=== PATIENT | female | born 1960 | race Caucasian/White ===

== ENCOUNTER → 2018-02-03 12:09 | Outpatient (CLI) | payer MEDICARE, SELFPAY ==
[2018-02-03 13:04] LABS: AST(SGOT) 17 U/L (15-37); Alanine Aminotransfer ALT/SGPT 18 U/L (13-56); Albumin, Serum 3.6 g/dL (3.2-5.0); Alkaline Phosphatase 67 U/L (45-117); Bilirubin, Direct 0.12 mg/dL (0.00-0.30); Cholesterol 302 mg/dL (200); Globulin 3.9 g/dL (2.2-4.2); High Density Lipoprotein 49 mg/dL; Protein, Total 7.5 g/dL (6.4-8.2); Triglycerides 145 mg/dL; Very Low Density Lipoprotein 29 mg/dL (5-40)
== END ==
PROVIDERS: Family Provider Internal Medicine; PCP Internal Medicine; Visit Provider Internal Medicine Cardiovascular Disease
DX: I25.10 Atherosclerotic heart disease of native coronary artery without angina pectoris (principal); E78.5 Hyperlipidemia, unspecified
CPT/HCPCS: 36415; 80061; 80076

== ENCOUNTER → 2018-05-04 09:26 | Outpatient (CLI) | payer MEDICARE, SELFPAY ==
[2018-05-04 10:30] LABS: AST(SGOT) 17 U/L (15-37); Alanine Aminotransfer ALT/SGPT 23 U/L (13-56); Albumin, Serum 3.7 g/dL (3.2-5.0); Alkaline Phosphatase 74 U/L (45-117); Cholesterol 275 mg/dL (200); Globulin 3.9 g/dL (2.2-4.2); High Density Lipoprotein 52 mg/dL; Protein, Total 7.6 g/dL (6.4-8.2); Triglycerides 130 mg/dL; Very Low Density Lipoprotein 26 mg/dL (5-40)
--- OUTSIDE RECORDS SUMMARY | 2018-08-05 16:07 | XMS RPT_ITS ---
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 Neoplasm Of Breast\ Screening Mammogram - patient reports NO breast symptoms /priors available for comparison. RESULT: TECHNIQUE: The study was acquired using full field digital technology and interpreted from soft copy. Current study was also evaluated with a Computer Aided Detection (CAD). Comparison is made to exams dated: 05/09/2015 mammogram, 01/31/2014 mammogram, 08/29/2011 mammogram - [facility], and 10/04/2007 mammogram. The tissue of both breasts is heterogeneously dense. This may lower the sensitivity of mammography. No significant masses, calcifications, or other findings are seen in either breast. There has been no significant interval change. IMPRESSION: NEGATIVE There is no mammographic evidence of malignancy.A 1 year screening mammogram is recommended. Silas Corea M.D., jr/stacey:06/25/2017 11:43:43 Fire Equipment Repairer Inspector: Libby BALDERRAMA(R)(M), [facility] letter sent: Normal over 40 Mammogram BI-RADS: 1 Negative Tax Evaluator: Stacey Transcribe Date/Time: Jun 25 2017 11:19A Dictated by: SILAS COREA MD This examination was interpreted and the report reviewed and electronically signed by: SILAS COREA MD on Jun 25 2017 11:43AM EST [id number] [id number] Observed: 06/23/2017 Status: COMPLETED Source: [place] 4:30 PM [facility] MAIN CAMPUS REPOSITORY HNO ID: [id number] Author: Rosalind Feliciano Service: (none) Author Type: Physician Type: Progress Notes Filed: 06/23/2017 5:18 PM Note Text: Reason for Visit Patient presents with: Same Day Appointment: rash x 1 day Spike Lew is a 56 year old female who presents here today for Above Complaints.. Health Maintenance HEPATITIS C SCREENING MAMMOGRAM PAP EVERY 5 YEARS HPV EVERY 5 YEARS INFLUENZA(1) HPI Rash for 1 day, around the neck, started with some welts and then subsided to a macular area. Started suddenly , wore the same jewellery no new clothes was not bit by any insect. Stiff neck for a week- Muscle aches for a week. She is also having more body ache as all her pain medication have been stopped by Dr. Gonzalez, Wants a new pain management doctor. Needs mammogram Currently on clopidogrel for her CAD, cont to smoke No problem-specific Assessment AND Plan notes found for this encounter. PAST MEDICAL HISTORY Diagnosis Date - Arrhythmia h/o bigeminy - Atherosclerosis of [place] coronary artery of [place] heart without angina pectoris 06/16/2016 - Chronic obstructive pulmonary disease (COPD) (HCC) - Depressive disorder, not elsewhere classified - Other anxiety states - Reflex sympathetic dystrophy of other specified site Left ankle - Snoring PAST SURGICAL HISTORY Procedure Laterality Date - FNA WITH IMAGING 05/17/14 U/S FNA left thyroid nodule - LIGATE FALLOPIAN TUBE - PAST SURGICAL HISTORY OF nerve stimulator - REMOVE TONSILS/ADENOIDS,12+ Y/O FAMILY HISTORY Problem Relation Age of Onset - Diabetes Mother - epilepsy [OTHER] Mother - lung cancer [OTHER] Father Social History Substance Use Topics - Smoking status: Former Smoker Packs/day: 0.50 Years: 30.00 Types: Cigarettes Quit date: 06/05/2016 - Smokeless tobacco: Never Used - Alcohol use Yes Comment: social Past medical history, appointments, medications, allergies reviewed. Pertinent Lab/Diagnostic Studies are reviewed and discussed today Current Outpatient Prescriptions: - fluticasone (FLONASE) 50 mcg/actuation nasal spray - CLOPIDOGREL BISULFATE (PLAVIX ORAL) - albuterol HFA (PROAIR HFA) 90 mcg/actuation inhaler - methadone (DOLOPHINE) 10 mg tablet - DULoxetine (CYMBALTA) 60 mg capsule - oxyCODONE-acetaminophen (PERCOCET) 5-325 mg tablet - ALPRAZolam (XANAX) 0.5 mg tablet - aspirin, enteric coated (ADULT LOW DOSE ASPIRIN) 81 mg EC tablet - pravastatin (PRAVACHOL) 20 mg tablet - ticagrelor (BRILINTA) 90 mg tablet - estradiol (ESTRACE) 0.01 % (0.1 mg/gram) vaginal cream - Cholecalciferol, Vitamin D3, 1,000 unit cap - multivitamin tablet - [place]-3 Fatty Acids (FISH OIL) 500 mg Cap Review of Systems CONSTITUTIONAL: No fevers, chills night sweats, unintended weight loss CARDIOVASCULAR: No chest pain, dyspnea, palpitations, orthopnea, PND, ankle edema. PULM: No dyspnea, unexplained cough. GI: No dysphagia/odynophagia, problematic reflux, constipation, diarrhea, changes in stool habits, hematochezia, melena. : No new urinary complaints, including dysuria, gross hematuria or pyuria. NEURO: No new balance problems, peripheral weakness/paresthesias or numbness of concern. Physical Exam BP 126/76 (BP Site: Left Arm, BP Position: Sitting, BP Cuff Size: Regular Adult) Pulse 86 Resp 12 Ht 170.2 cm (5' 7) Wt 69.4 kg (153 lb) LMP 01/18/2008 SpO2 95% BMI 23.96 kg/m2 General appearance: Well appearing, alert, in no acute distress, well nourished. Skin: some redness on the right side of the neck area of around 2cm by 2 cm with one little papular lesion Head: Normocephalic, no masses, lesions, tenderness or abnormalities Eyes: Anicteric sclera. Pupils are equally round and reactive to light. Extraocular movements are intact. Lungs: Lungs clear to auscultation. No wheezing, rhonchi, rales Heart: RRR without murmur, gallop, or rubs. ASSESSMENT/PLAN: 1. Muscle pain - ICD9: 729.1, ICD10: M79.1 (primary diagnosis) - CYCLOBENZAPRINE 10 MG TABLET 2. Neck stiffness - ICD9: 723.5, ICD10: M43.6 - PREDNISONE 10 MG TABLET - CYCLOBENZAPRINE 10 MG TABLET 3. Gastroesophageal reflux disease, esophagitis presence not specified - ICD9: 530.81, ICD10: K21.9 - Discussed lifestyle modifications including losing weight, limiting caffeine, no meals three hours before sleep and head of bed elevation - PANTOPRAZOLE 20 MG TABLET,DELAYED RELEASE 4. Encounter for screening mammogram for breast cancer - ICD9: V76.12, ICD10: Z12.31 - Encouraged monthly BSE - Follow up for annual exam in one year. - [facility] SCREENING ROSALIND FELICIANO MD CARDIOLOGY VISIT Observed: 06/11/2017 Status: F Source: [place] RE[place] 2:02 PM [facility] REPOSITORY [place] [facility] [address] [place] [address] OFFICE VISIT Date of Service: 06/11/17 MR#: [id number] Acct: [id number] Name: SPIKE LEW Rep #: [id number] : 1960 Provider: Domenico Carvalho MD Age/Sex: 56/F Location: [facility] Status: Signed HPI 6 M FU: Chief Complaint: Routine F/u Details: HPI Mrs. Lew is a very pleasant 56-year-old nondiabetic long smoking patient, who recently quit after presenting with substernal chest pain and non-ST elevation myocardial infarction to [facility]. Her troponins increased to 1.5. She underwent an urgent left heart catheterization by myself. This demonstrated a 40-50% mid eccentric plaque of the LAD followed by nonobstructive disease of the LAD diagonals and left circumflex system. She appeared to have a possibly significant proximal RCA stenosis as well as a filling defect in the most extreme terminal portion of the posterior lateral branch. This was too small for balloon angioplasty, however IVUS demonstrated a significant stenosis of the proximal RCA. She underwent successful angioplasty and drug-eluting stent of the proximal RCA receiving of 4.0X 28 Promus mm. Since discharge the patient has been feeling much better however she does have some fatigue as a result of her beta devin. She was doing well up until 08/04/16 when she presented with syncope most likely vasovagal and as a result of her beta devin. Her metoprolol was discontinued and she has had no further syncopal episodes. She initially quit smoking with Chantix assistance, then went back to smoking but wishes to go back on Chantix. Her main complaint today is fatigue and tiredness. From a cardiac standpoint she denies any chest pain, angina, shortness of breath or dyspnea on exertion. She does complain of fatigue, and is still smoking about 6 or 7 cigarettes per day. She is awaiting a sleep study for excessive snoring and daytime somnolence. In our office today her blood pressure is 110/62, and pulse is 88 and reg is as below. Echocardiogram dated 06/06/16 showed an EF of 65% and RVSP of 27 mmHg. EKG date06/07/16 showed normal sinus rhythm with inferior nonspecific ST and T-wave changes. Lipids as of 06/06/16 show an LDL of 122 and HDL 38. Repeat lipids are pending. Intake Vital Signs06/11/17 Height 5 ft 7 in 06/11/17 Weight: 155 lb 06/11/17 Body Mass Index (BMI) 24.3 06/11/17 Blood Pressure 110/62 06/11/17 Respiratory Rate 18 06/11/17 Pulse Rate 78 Intake Visit Reasons: 6 M FU Allergies aspirin Adverse Reaction (Verified 06/11/17 13:37) Other Msiuqbv-Kns-Hnp Reductase Inhibitor Adverse Reaction (Verified 06/11/17 13:37) myalgias ticagrelor [From Brilinta] Adverse Reaction (Verified 06/11/17 13:37) SOB Medications Cholecalciferol (Vitamin D3) [Vitamin D3] 1,000 unit PO DAILY 06/05/16 [History Confirmed 06/10/17] Estradiol [Estrace Vaginal Cream] 1 gm VAGINAL Q7D 06/05/16 [History Confirmed 06/10/17] Methadone HCl 10 mg PO Q12H 06/05/16 [History Confirmed 06/10/17] [place]-3 Fatty Acids/Fish Oil [[place] 3 Fish Oil Softgel] 1 ea PO DAILY 06/05/16 [History Confirmed 06/10/17] ALPRAZolam [Xanax] 0.5 mg PO TID PRN PRN #30 tab 06/07/16 [Rx Confirmed 06/10/17] Aspirin E.C. [Ecotrin] 81 mg PO DAILY@0800 tab 06/07/16 [Rx Confirmed 06/10/17] Duloxetine Hcl [Cymbalta] 60 mg PO DAILY #30 nathaniel. 06/07/16 [Rx Confirmed 06/10/17] clopidogrel 75 mg tablet 75 mg PO QDAY 06/10/17 [History Confirmed 06/10/17] oxycodone-acetaminophen 5 mg-300 mg tablet 1 tab PO Q6H tab 06/11/17 [History Confirmed 06/11/17] PFS Medical History Atherosclerosis of coronary artery of [place] heart without angina pectoris (Chronic) Nicotine dependence (Chronic) Hyperlipidemia (Chronic) Non-STEMI (non-ST elevated myocardial infarction) (Chronic) Hypertension (Chronic) Chronic pain syndrome (Chronic) ETOH abuse (Chronic) Syncope and collapse (Resolved) Surgical History History of coronary artery stent placement (Chronic 06/05/16) H/O tubal ligation (Chronic) History of tonsillectomy (Chronic) presence of nerve stimulator (Chronic) Family History Father CAD (coronary artery disease) Mother Diabetes Hypertension Social History Smoking Status: Current every day smoker alcohol intake: current alcohol intake frequency: a few times a week ROS Const Const: Positive for fatigue; negative for weakness, difficulty sleeping, frequent falls, headache(s) or excessive sweating Eyes Eyes: Negative for loss of peripheral vision, transient loss of vision, blurry vision or double vision ENT ENT: Negative for headache(s), Negative for dizziness, Negative for Nosebleed/epistaxis, Negative for balance problems Cardio Chest Pain: No Edema: None Muscle aches with walking: None Resp Respiratory: Positive for snoring; negative for SOB with activity, SOB at rest, SOB orthopnea\SOB lying down or paroxysmal nocturnal dyspnea GI GI: Negative nausea or heartburn : Negative for hematuria Musc Musc: Positive for joint pain; negative for muscle aches/ myalgia, muscle weakness or balance problems Skin Skin: Negative non-healing lesions, unusual bruising or rash Neuro Neuro: Negative for weakness, Negative for frequent falls, Negative for blurry vision, Negative for headache(s), Negative for dizziness, Negative for lightheadedness, Negative for orthostatic symptoms, Negative for double vision Luis Alfredo Hematologic/Lymphatic: Negative for easy bruising Endo Endo: Positive for fatigue; negative for excessive sweating or increased thirst/drinking Psych Psych: Negative for anxiety or depression Allergy Allergy/Immunology: Negative for hives, Negative for rash Cardiology Exam Const Appearance: cooperative, healthy appearing and no acute distress Nutritional Appearance: well nourished Orientation: alert, oriented x3 and oriented to person Head Head: normal to inspection, atraumatic and normocephalic Nose: external nose normal Face and Sinus: face symmetric Mouth: oral mucosae normal Eyes General: appearance normal, both eyes and all related structures Eyelids: eyelids normal Conjunctivae: conjunctivae normal Pupils: PERRL and normal by confrontation EOM: EOM intact bilaterally Neck Neck: normal visual inspection and full ROM Carotids: normal carotid upstroke Chest Chest inspection: normal inspection of the chest Auscultation: Bilateral: Clear to Auscultation Cardio Palpation: normal PMI Rate: regular rate Rhythm: regular rhythm Heart sounds: S1 normal and S2 normal GI GI: normal to inspection, no hepatosplenomegaly and bowel sounds present Neuro General: alert, oriented x3, awake, CN's II-XI intact bilaterally and moves all extremities Skin Skin: no rashes or lesions noted Extremities Pulses: Normal: Right Femoral Pulse, Left Femoral Pulse, Right Dorsalis Pedis Pulse, Left Dorsalis Pedis Pulse, Right Posterior Tibial Pulse, Left Posterior Tibial Pulse, Right Radial Pulse, Left Radial Pulse Lower Extremity Edema: None: Bilateral Psych Psychological: normal affect Assessment AND Plan Plan 1. Coronary artery disease: No exertional anginal symptoms at this time. No indication for any additional testing. She is awaiting a sleep study and I encouraged her to continue with that. Recommended that she continue her baby aspirin, Plavix for her nonobstructive coronary disease she is unable to take beta blockers due to severe fatigue. 2. Hypercholesterolemia: We are awaiting a repeat lipid profile. Unfortunately she is unable to tolerate statins. Continue omega-3 fatty acids. 3. Tobacco cessation: I strongly encouraged the patient to discontinue all tobacco products and to begin an exercise program to assist with that goal. Patient is agreed to proceed once her sleep study has been completed. 4. Return to office in 6 months. This note was generated using a voice recognition system and there may be incorrect words, spelling or punctuation that were not noted when reviewing the office note prior to saving.. Orders Orders: Plan Detail Follow Up 6 Months (Deven) Coding Level of Care Code Off vis,est,level 3 06/11/17 1402 <Electronically signed by Domenico Carvalho MD> Date Domenico Carvalho MD Cosigner Signature: Date (if applicable) CC: ALLERGIES ALLERGIES DATE TYPE / CODE NAME / CODE REACTION SEVERITY SOURCE Drug Fypsrth-Fuw-Fzt MYALGIAS Unknown [place] 8 Allergy/227522610( Reduct[facility] SNOMED [facility]) Inhibitor/J979137 Hospital 095(RXNORM) Repository Drug aspirin/[id number] Other Unknown [place] 8 Allergy/286003535( 7(RXNORM) [facility] SNOMED CT) Hospital Repository Drug ticagrelor/R86896 Shortness of Unknown [place] 8 Allergy/240647090( 3611(RXNORM) breath [facility]) Hospital Repository DRUG ATORVASTATIN Myalgia [place] 5 INGREDI/015277869( [facility] SNOMED CT) [place] Repository Miscellaneous OTHER GI UPSET [place] 9 Allergy/001612407( [facility] SNOMED CT) [place] Repository ENCOUNTERS ENCOUNTERS ADMIT/DISCHARGE ACCOUNT ADMITTING ENCOUNTER LOCATION SOURCE NUMBER CLASS 05/04/2018 [id number] Ambulatory [facility] ing:LAB Repository 02/03/2018 [id number] Ambulatory [facility] ing:LAB Repository 01/28/2018/01/29/20 [id number] Ambulatory BMSBuilding:[place] [address] [place] Repository 06/25/2017/06/25/19 [id number] Ambulatory [address] Repository 06/23/2017/06/23/19 [id number] Ambulatory [address] Repository 06/11/2017/06/11/19 [id number] Ambulatory BMSBuilding:Panch[place] 18 .[facility] Repository 06/10/2017 [id number] Ambulatory BMSBuilding:B [place] Repository PAYERS PAYERS ENCOUNTER GUARANTOR PAYER SUBSCRIBER SOURCE 05/04/2018 SPIKE A Primary Insurance:MMO SPIKE A [place] [id number] MEDICAREPolicy JOHNSONDOB: General acute hospital Number: [id number], [place] [id number] Repository [address]Aou: ([phone]) Date:[id number] [phone] () [address] [place] [phone]: 05/04/2018 Secondary NOT GIVENUNK [place] Insurance:SELF PAY [facility] Number: Effective Repository Date:2018-05-04 02/03/2018 SPIKE A Primary Insurance:MMO SPIKE A [place] [id number] MEDICAREPolicy JOHNSONDOB: General acute hospital Number: [id number], [place] [id number] Repository [address]Hzp: ([phone]) Date:[id number] [phone] () [address] [place] [phone]: 02/03/2018 Secondary NOT GIVENUNK [place] Insurance:SELF PAY [facility] Number: Effective Repository Date:2018-02-03 01/28/2018 SPIKE A Primary Insurance:MMO SPIKE A [place] [id number] MEDICAREPolicy JOHNSONDOB: General acute hospital Number: [id number], [place] [id number] Repository 619[address]Llj: (330) Date:[id number] [phone] () [address], [place] [phone]: 01/28/2018 Secondary NOT GIVENUNK [place] Insurance:SELF PAY [facility] Number: Effective Repository Date:2018-01-26 06/11/2017 SPIKE A Primary Insurance:MMO SPIKE A [place] [id number] MEDICAREPolicy JOHNSONDOB: General acute hospital Number: [id number], [place] [id number] Repository [address]Upt: ([phone]) Date:[id number] [phone] () [address], [place] [address]CK: 06/11/2017 Secondary NOT GIVENUNK [place] Insurance:SELF PAY [facility] Effective Repository Date:2017-04-20 06/10/2017 Spike [id number] Primary Insurance:[facility] SPIKE TYLERB: [place] MEDICAREPolicy [id number] Number: [facility] [address]Nxt: [id number] Repository [phone] Date:[id number] [address] () [address] [place] [phone]: 06/10/2017 Secondary NOT GIVENUNK [place] Insurance:SELF PAY [facility] Number: Effective Repository Date:2017-06-10
== END ==
PROVIDERS: Nurse Practitioner Family; Family Provider Internal Medicine; PCP Internal Medicine; Referring Provider Internal Medicine Cardiovascular Disease; Visit Provider Internal Medicine Cardiovascular Disease
DX: E78.5 Hyperlipidemia, unspecified (principal); I25.10 Atherosclerotic heart disease of native coronary artery without angina pectoris; Z95.5 Presence of coronary angioplasty implant and graft
CPT/HCPCS: 36415; 80061; 80076

== ENCOUNTER 2018-08-09 12:00 | Inpatient (IN) | payer MEDICARE, SELFPAY ==
[2018-08-09] VITALS (10 sets, daily range): BP systolic 93–133; BP diastolic 57–91; PULSE 53–85; RESP 14–18; TEMP 36.1–36.9; O2SAT 96–99; BMI 24.7; BMI 25.0; BMI 24.9
--- NOTE | 2018-08-09 12:13 | EKG12_ITS ---
Test Reason : CP Blood Pressure : / mmHG Vent. Rate : 068 BPM Atrial Rate : 068 BPM P-R Int : 124 ms QRS Dur : 094 ms QT Int : 386 ms P-R-T Axes : 069 059 -57 degrees QTc Int : 410 ms Normal sinus rhythm Possible Left atrial enlargement Marked ST abnormality, possible inferior subendocardial injury Abnormal ECG Confirmed by JAZ CHAUHAN, DUNG ([id number]), staff editor SAMY BASILIO ([id number]) on 08/11/2018 1:34:39 PM Referred By: MENA/JIM Confirmed By:DUNG SEBASTIAN MD
--- NOTE | 2018-08-09 12:13 | RAD_ITS ---
STUDY: X-RAY CHEST REASON FOR EXAM: Female, 57 years old. Chest pain. TECHNIQUE: Single AP portable view of the chest. COMPARISON: Comparison is made with prior study August 04, 2016. FINDINGS: EKG electrodes are seen. The lungs are clear and expanded. There is no demonstrated pleural abnormality. Normal size heart. Normal mediastinum and lianna. Normal visualized pulmonary arteries. Normal visualized aortic arch and descending thoracic aorta. Normal visualized thoracic spine. Normal visualized ribs, clavicles, and shoulders. There is no demonstrated abnormality of the visualized soft tissue structures of the upper abdomen. RAD/Chest 1 View (Portable) IMPRESSION: Normal x-ray examination of the chest. Electronically Signed: Ashvin Negro, at 12:43 EDT , Service support ,
--- NOTE | 2018-08-09 12:15 | ED.VISSUMM ---
- ER Visit Summary Date of Service: 08/09/18 Chief Complaint: Chest pain History of Present Illness: The patient is a 57 F who presents with chest pain that began several days ago. Patient states the pain is over the substernal area. Patient states her pain has improved since she arrived here in the emergency department. Patient saw her flow nurse today who did an EKG and noted some changes on the EKG. Patient was then referred to the emergency department for further evaluation. Patient admits to some slight shortness of breath. Patient denies any nausea or vomiting. Patient denies any diaphoresis. Patient does admit to some palpitations with exertion. Patient denies any cough or fevers. Patient does admit to recent travel to [place]. Physical Examination: Vital signs are stable. Patient is afebrile. Patient is in no acute distress. Oral mucosa is pink and moist. Neck is supple. Trachea is midline. There is no JVD noted. Heart was regular rate and rhythm. Lungs are clear and equal bilateral. Abdomen is soft. Bowel sounds are normal. There is no tenderness. There is no guarding noted. Cranial nerves II through XII are intact. There are no focal motor or sensory deficits noted. Test Results: EKG showed normal sinus rhythm with a rate of 68. There is ST depression and T wave inversion noted in leads II, III, and aVF. There is some mild nonspecific ST depression in V5 and V6 as well. These changes were different from EKG dated 08/04/2016. CBC and basic metabolic profile were normal. Portable chest x-ray was obtained. There is no acute cardiopulmonary process. Troponin was elevated at 2.47. Emergency Department Course and Treatment: Patient was not given aspirin due to an aspirin allergy. Patient was given sublingual nitroglycerin. Patient states her pain has resolved. Patient takes Plavix daily. Case was discussed with Dr. Bal and the hospitalist. Patient will be admitted to the hospitalist service. Patient was given subcutaneous Lovenox. Patient understood and was agreeable with the plan. All questions were answered. Disposition: Admit to hospital Impression: Non-STEMI This note was generated with [employer] dictation software. It may contain incorrect words, spelling, and punctuation that were not noted in review of the chart prior to signing ED Disposition - Plan for ED Patient: Disposition: Acute Care Hospital [facility] Diagnosis: Non-STEMI (non-ST elevated myocardial infarction) Referrals: Rosalind Jama MD [Primary Care Provider] -
--- NOTE | 2018-08-09 12:18 | ED.DCSUM_ITS ---
- ER Visit Summary Date of Service: 08/09/18 Chief Complaint: Chest pain History of Present Illness: The patient is a 57 F who presents with chest pain that began several days ago. Patient states the pain is over the substernal area. Patient states her pain has improved since she arrived here in the emerg ency department. Patient saw her inspector elevators today who did an EKG and noted some changes on the EKG. Patient was then referred to the emergency department for further evaluation. Patient admits to some slight shortness of breath. Patient denies any nausea or vomiting. Patient denies any diaphoresis. Patient does admit to some palpitations with exertion. Patient denies any cough or fevers. Patient does admit to recent travel to [place]. Physical Examination: Vital signs are stable. Patient is afebrile. Patient is in no acute distress. Oral mucosa is pink and moist. Neck is supple. Trachea is midline. There is no JVD noted. Heart was regular rate and rhythm. Lungs are clear and equal bilateral. Abdomen is soft. Bowel sounds are normal. There is no tenderness. There is no guarding noted. Cranial nerves II through XII are intact. There are no focal motor or sensory deficits noted. Test Results: EKG showed normal sinus rhythm with a rate of 68. There is ST depression and T wave inversion noted in leads II, III, and aVF. There is some mild nonspecific ST depression in V5 and V6 as well. These changes were different from EKG dated 08/04/2016. CBC and basic metabolic profile were normal. Portable chest x-ray was obtained. There is no acute cardiopulmonary process. Troponin was elevated at 2.47. Emergency Department Course and Treatment: Patient was not given aspirin due to an aspirin allergy. Patient was given sublingual nitroglycerin. Patient states her pain has resolved. Patient takes Plavix daily. Case was discussed with Dr. Bal and the hospitalist. Patient will be admitted to the hospitalist service. Patient was given subcutaneous Lovenox. Patient understood and was agreeable with the plan. All questions were answered. Disposition: Admit to hospital Impression: Non-STEMI This note was generated with [employer] dictation software. It may contain incorrect words, spelling, and punctuation that were not noted in review of the chart prior to signing ED Disposition - Plan for ED Patient: Disposition: Acute Care Hospital [facility] Diagnosis: Non-STEMI (non-ST elevated myocardial infarction) Referrals: Rosalind Jama MD [Primary Care Provider] -
[2018-08-09 12:22] LABS: Absolute Lymphocyte Count 1.88 X10^3/ul (0.83-4.51); Absolute Neutrophil Count 3.9 X10^3/uL (2.0-7.7); Basophil# 0.01 X10^3/uL; Basophil% 0.2 % (0-1); Eosinophil# 0.11 X10^3/uL; Eosinophils% 1.7 % (0-5); Hematocrit 45.7 % (37-47); Hemoglobin 14.6 g/dl (12.0-15.0); Lymphocyte # 1.88 X10^3/ul (4.0); Lymphocyte % 29.9 % (19-41); Mean Corp Hgb Conc 31.9 g/gl (32-36); Mean Corpuscular Hgb 28.3 pg (27.0-32.0); Mean Corpuscular Volume 88.7 fL (81-99); Mean Platelet Vol. 9.9 fl (6.2-12.0); Monocyte# 0.35 X10^3/uL; Monocyte% 5.6 % (0-10); Neutrophil # 3.94 X10^3/uL (2.7-7.7); Neutrophil % 62.6 % (47-70); Platelet Count 256 K/mm3 (150-450); RBC Distribution Width CV 13.1 % (11.6-14.6); RBC Distribution Width SD 42.2 fl (35.1-43.9); Red Blood Count 5.15 M/mm3 (4.2-5.4); White Blood Count 6.3 K/mm3 (4.4-11.0)
[2018-08-09 12:30] LABS: POSITIVE COUNT NO; POSITIVE DIFFERENTIAL NO; POSITIVE MORPHOLOGY NO
[2018-08-09 12:50] LABS: Anion Gap 6 (5-15); BUN 15 mg/dL (7-18); BUN/Creat Ratio 15.3 RATIO (10-20); Calcium,Total 9.3 mg/dL (8.5-10.1); Chloride 104 mmol/L (98-107); Creatinine, Serum 0.98 mg/dL (0.55-1.02); EST Glomerular Filtration Rate 62 mL/min (>60); Est Glom Filt Rate - Afr Amer 75 mL/min (>60); Estimated Creatinine Clearance 60.11 ml/min; Glucose 91 mg/dL (74-106); Potassium 4.1 mmol/L (3.5-5.1); Sodium Level 140 mmol/L (136-145)
--- NOTE | 2018-08-09 13:06 | PCM.HP.STD ---
Problem List (1) Non-STEMI (non-ST elevated myocardial infarction) Status: Acute (2) ETOH abuse Status: Chronic (3) Atherosclerosis of coronary artery of [place] heart without angina pectoris Status: Chronic Qualifiers: Coronary Disease-Associated Artery/Lesion type: unspecified vessel or lesion type Qualified Code(s): I25.10 - Atherosclerotic heart disease of [place] coronary artery without angina pectoris (4) History of coronary artery stent placement Status: Chronic Comment: PCI-DAYANARA-RCA 06/05/2016 (5) Nicotine dependence Status: Chronic Qualifiers: Nicotine product type: unspecified (6) Hyperlipidemia Status: Chronic Qualifiers: Hyperlipidemia type: pure hypercholesterolemia Qualified Code(s): E78.00 - Pure hypercholesterolemia, unspecified; E78.0 - Pure hypercholesterolemia (7) Hypertension Status: Chronic Qualifiers: Hypertension type: essential hypertension Qualified Code(s): I10 - Essential (primary) hypertension History of Present Illness Date of Admission: 08/09/18 Chief Complaint: Chest pain The patient is a 57 y/o F w/ PMHx: Tobacco use, EtOH Abuse, CAD s/p PCI x 1, HTN, HLD, Chronic Pain Syndrome s/p prior spinal and peripheral nerve stimulator s/p removal with wires still in place, not following with Chronic Pain Management but using old rx Methadone at reduced dose who presents to the [facility] ED on 08/09/[address] Carvalho office per TRIM AND BURR OPERATOR recommendation with admitted ongoing intermittent chest pain x 1 month and in office EKG changes from prior w/ noted T wave inversions and ST depression II, III, aVF, specific ST depression V5-V6 w/ patient noted ongoing intermittent 1 month history of midsternal chest discomfort described as burning, aching, pressure-like in nature, worse with any exertion, lasting 15 to 20 minutes normally rated at a 5 out of 10 in severity, improving following laying down and with rest with mild dyspnea associated with worsened episode Thursday prior to current presentation with concurrently associated nausea without emesis and diaphoresis with worsening severity, rated 9 out of 10. Patient currently chest pain-free with recent NG administration in the ED. Work-up in the ED included T 97, heart rate 71, BP 120/86, respiratory rate 16, 96% on 2 L nasal cannula, unremarkable CBC, unremarkable coags, unremarkable BMP, opponent 2.470, EKG with ST depression T wave inversion in leads II, 3, aVF and some mild nonspecific ST depression in V5 and V6 different from prior, chest x-ray with no acute cardiopulmonary findings. The ED patient administered nitroglycerin, therapeutic Lovenox x1. Security Expert, Dr. Bal consulted per ED and reviewed case upon admission. Past Medical History Past Medical History (Chronic Problems): Chronic Problems (Last Reviewed 01/28/18 @ 14:03 by Adriana Bhat) ETOH abuse (Chronic) Atherosclerosis of coronary artery of [place] heart without angina pectoris (Chronic) History of coronary artery stent placement (Chronic 06/05/16) PCI-DAYANARA-RCA 06/05/2016 Nicotine dependence (Chronic) Hyperlipidemia (Chronic) Hypertension (Chronic) Medical History: Medical History (Last Reviewed 01/28/18 @ 14:03 by Adriana Bhat) Atherosclerosis of coronary artery of [place] heart without angina pectoris (Chronic) I25.10 Nicotine dependence (Chronic) F17.200 Hyperlipidemia (Chronic) E78.5 Non-STEMI (non-ST elevated myocardial infarction) (Chronic) I21.4 Hypertension (Chronic) I10 Chronic pain syndrome G89.4 ETOH abuse F10.10 Syncope and collapse R55 Allergies aspirin Adverse Reaction (Verified 08/09/18 12:03) Other hallucinations, upset stomachs Jwgegmc-Tmw-Pfp Reductase Inhibitor Adverse Reaction (Verified 08/09/18 12:03) myalgias ticagrelor [From Brilinta] Adverse Reaction (Verified 08/09/18 12:03) SOB Home Medications: Ambulatory Orders Medication Instructions Recorded Cholecalciferol (Vitamin D3) 1,000 unit PO DAILY 06/05/16 [Vitamin D3] Estradiol [Estrace Vaginal Cream] 1 gm VAGINAL Q7D 06/05/16 [place]-3 Fatty Acids/Fish Oil 1 ea PO DAILY 06/05/16 [[place] 3 Fish Oil Softgel] Aspirin E.C. [Ecotrin] 81 mg PO DAILY@0800 08/09/18 Clopidogrel Bisulfate [Clopidogrel] 75 mg PO DAILY 08/09/18 Ezetimibe 10 mg PO DAILY 08/09/18 Oxycodone HCl/Acetaminophen 1 each PO Q8H PRN PRN 08/09/18 [Percocet 5-325 mg Tablet] ascorbic acid (vitamin C) 500 mg 500 mg PO DAILY cap 08/09/18 capsule duloxetine 60 mg capsule,delayed 60 mg PO DAILY 08/09/18 release methadone 5 mg tablet 2.5 mg PO DAILY tab 08/09/18 vitamin B complex tablet 1 tab PO DAILY 08/09/18 Surgical History: Surgical History (Last Reviewed 08/09/18 @ 11:16 by Penny Valle) History of coronary artery stent placement (Chronic) Onset Date: 06/05/16 Z95.5 PCI-DAYANARA-RCA 06/05/2016 H/O tubal ligation Z98.51 History of tonsillectomy Z98.890, Z90.89 presence of nerve stimulator Surgical History: - - Tubal ligation, implantation of III nerve stimulators for RSD with devices removed however wires remain intact, T+A, PCI x 1. Psychiatric History: No pertinent psych hx BUSINESS TAXES SPECIALIST History: No pertinent BUSINESS TAXES SPECIALIST history Lives: Spouse/ Significant Other Smoking Status: Current every day smoker - Currently transition from cigarette tobacco usage approximately 6 months prior to vaping, unclear amount. Tobacco Use: Vapor Alcohol: Heavy - Patient notes at least 3 to 5 days/week 4 to 5, 12 ounce beers daily. Drugs: - - Former history of cannabis usage, has stopped she notes. - *Family History Maternal Family History: Family History (Last Updated 08/09/18 @ 11:17 by Penny Valle) Father CAD (coronary artery disease) Mother Diabetes Hypertension Thyroid disorder History Items: Cancer, Diabetes, High Cholesterol, Hypertension Paternal Family History: Family History (Last Updated 08/09/18 @ 11:17 by Penny Valle) Father CAD (coronary artery disease) Mother Diabetes Hypertension Thyroid disorder History Items: Cancer, Heart Disease Review of Systems Constitutional: Reports: Malaise, Weakness, Fatigue. Denies: Chills, Fever, Weight Change HEENT: Denies: Head Aches, Sinus Congestion, Sinus Drainage Cardiovascular: Reports: Chest Pain, Chest Pressure. Denies: Heaviness, Light Headedness, Orthopnea, Palpitations, Syncope Respiratory: Reports: Shortness of Breath, Shortness of breath at rest, Shortness of breath upon exertion. Denies: Cough, Sputum production, Wheezing Gastrointestinal: Reports: Nausea. Denies: Abdominal Pain, Vomiting Genitourinary: Denies: Dysuria Musculoskeletal: Reports: Back Pain, Joint Pain. Denies: Joint Tenderness Skin: Denies: Rash, Wounds Neurological: Denies: Numbness, Tingling, Focal weakness Psychiatric: Denies: Anxiety, Depression, Homicidal Ideations, Suicidal Ideations Hematologic/ Lymphatic: Denies: Easy Bruising, Easy Bleeding VTE Information - Inpt Only VTE Present on Admission: No VTE Mechan Device Prophylaxis: SCD's VTE Pharm Prophylaxis ordered?: Yes Patient Problems: Active and Suspected Problems (Last Reviewed 01/28/18 @ 14:03 by Adriana Bhat) Non-STEMI (non-ST elevated myocardial infarction) (Acute) Subjective: Seated upright in the bed, no acute distress, notes chest discomfort is notably improved. Objective: Physical Examination: General: awake, alert, oriented x 3 and cooperative, seated upright in PCU bed in no apparent distress, chest discomfort is notably improved. Skin: normal color, turgor, no icterus, cyanosis. HEENT: AT/NC, EOMI, PERRLA, MMM, no carotid bruits or JVD noted. Lungs: Breath sounds bilateral bases, moderate effort, no rales, ronchi or wheezing. Heart: Regular rate and rhythm; no gallop, rub audible. Abdomen: soft, NTTP, ND, normal BS, no HSM. Extremities: no cyanosis, clubbing, or edema. Neurological: patient awake, alert, oriented x 3; cognitive function intact; pupils equally reactive to light and accomodation; cranial nerves II-XII grossly normal, moving all 4 extremities, no focal deficits, strength mildly moderately globally decreased secondary to acute presentation. Psychiatric: affect appears normal, no acute evidence of depressive or anxiety feelings. - Physical Exam Vital Signs Temp Pulse Resp BP Pulse Ox 97 F L 71 16 120/86 H 96 08/09/18 12:08/09/18 12:01 08/09/18 12:08/09/18 12:08/09/18 12:15 Oxygen Flow Rate (L/min) 2 Oxygen Delivery Method Nasal Cannula Weight: 159 lb 6.307 oz Body Mass Index (BMI) 25.0 Laboratory Tests Past 24 Hrs 08/09/18 08/09/18 12:08 12:08 WBC 6.3 RBC 5.15 Hgb 14.6 Hct 45.7 MCV 88.7 MCH 28.3 MCHC 31.9 L RDW 13.1 RDW Differential 42.2 Plt Count 256 MPV 9.9 Immature Gran % (Auto) 0.000 Neut % (Auto) 62.6 Lymph % (Auto) 29.9 Cassia % (Auto) 5.6 Eos % (Auto) 1.7 Baso % (Auto) 0.2 Absolute Neuts (auto) 3.9 Absolute Lymphs (auto) 1.88 Total Counted Not Reportable Sodium 140 Potassium 4.1 Chloride 104 Carbon Dioxide 30.0 Anion Gap 6 BUN 15 Creatinine 0.98 Estim Creat Clear Calc 60.11 Est GFR (MDRD) Af Amer 75 Est GFR (MDRD) Non-Af 62 BUN/Creatinine Ratio 15.3 Glucose 91 Calcium 9.3 Troponin I 2.470 H* Assessment/Plan All Active Problems (Last Reviewed 01/28/18 @ 14:03 by Adriana Bhat) Non-STEMI (non-ST elevated myocardial infarction) (Acute) Chest pain (Resolved) The patient is a 57 y/o F w/ PMHx: Tobacco use, EtOH Abuse, CAD s/p PCI x 1, HTN, HLD, Chronic Pain Syndrome s/p prior spinal and peripheral nerve stimulator s/p removal with wires still in place, not following with Chronic Pain Management but using old rx Methadone at reduced dose who presents to the [facility] ED on 08/09/[address] Carvalho office per TRIM AND BURR OPERATOR recommendation with admitted ongoing intermittent chest pain x 1 month and in office EKG changes from prior w/ noted T wave inversions and ST depression II, III, aVF, specific ST depression V5-V6 w/ patient noted ongoing intermittent 1 month history of midsternal chest discomfort described as burning, aching, pressure-like in nature, worse with any exertion, lasting 15 to 20 minutes normally rated at a 5 out of 10 in severity, improving following laying down and with rest with mild dyspnea associated with worsened episode Thursday prior to current presentation with concurrently associated nausea without emesis and diaphoresis with worsening severity, rated 9 out of 10. (1) Chest Pain w/ Acute NSTEMI: Work-up in the ED included T 97, heart rate 71, BP 120/86, respiratory rate 16, 96% on 2 L nasal cannula, unremarkable CBC, unremarkable coags, unremarkable BMP, opponent 2.470, EKG with ST depression T wave inversion in leads II, 3, aVF and some mild nonspecific ST depression in V5 and V6 different from prior, chest x-ray with no acute cardiopulmonary findings. Will admit to PCU, maintain on a monitored bed, continue serial cardiac enzymes and EKGs. Obtain magnesium level upon admission. Continue therapeutic lovenox. Continue medical management w/ asa, plavix, BB, statin allergy noted w/ AM FLP. Cardiology consulted, plan for cardiac catheterization. Maintain NPO after midnight. ASA, NG, morphine. (2) CAD: s/p PCI DAYANARA RCA 06/05/2016, maintain on asa, plavix, statin allergy noted, added low dose BB. (3) EtOH Abuse: Patient notes routine consumption of 4-5, 12 ounce beers majority of the weekdays. Discussed appropriate alcoholic intake and female. Will maintain on CIWA protocol, MVI, thiamine and folic acid. Mag and false pending. (4) Tobacco Abuse: Encouraged cessation including of vapor products, inpatient consultation per RT, NR if desired for currently deferred given acute presentation which was discussed and amenable per patient. (5) Chronic pain syndrome, RDS: Prior spinal and peripheral stimulators, devices have been removed, wires remain, not following with chronic pain management however she is continuing to take oral methadone and oral narcotic therapies which are her prior scripts at a reduced dose to make these last. Continue to avoid withdrawal and have PRN agents above this given acute presentation. (6) Hypertension: BP not elevated upon ED presentation, not on regimen, add low-dose beta-devin given acute presentation, PRN hydralazine. (7) Hyperlipidemia: Statin allergy noted. FLP in AM (8) DVT Prophylaxis: SCDs, therapeutic lovenox. Code Visit Inpatient E&M: 31268 Init Hosp L3
--- NOTE | 2018-08-09 13:09 | HP.PCM_ITS ---
Problem List (1) Non-STEMI (non-ST elevated myocardial infarction) Status: Acute (2) ETOH abuse Status: Chronic (3) Atherosclerosis of coronary artery of [place] heart without angina pectoris Status: Chronic Qualifiers: Coronary Disease-Associated Artery/Lesion type: unspecified vessel or lesion type Qualified Code(s): I25.10 - Atherosclerotic heart disease of [place] coronary artery without angina pectoris (4) History of coronary artery stent placement Status: Chronic Comment: PCI-DAYANARA-RCA 06/05/2016 (5) Nicotine dependence Status: Chronic Qualifiers: Nicotine product type: unspecified (6) Hyperlipidemia Status: Chronic Qualifiers: Hyperlipidemia type: pure hypercholesterolemia Qualified Code(s): E78.00 - Pure hypercholesterolemia, unspecified; E78.0 - Pure hypercholesterolemia (7) Hypertension Status: Chronic Qualifiers: Hypertension type: essential hypertension Qualified Code(s): I10 - Essential (primary) hypertension History of Present Illness Date of Admission: 08/09/18 Chief Complaint: Chest pain The patient is a 57 y/o F w/ PMHx: Tobacco use, EtOH Abuse, CAD s/p PCI x 1, HTN, HLD, Chronic Pain Syndrome s/p prior spinal and peripheral nerve stimulator s/p removal with wires still in place, not following with Chronic Pain Management but using old rx Methadone at reduced dose who presents to the [facility] ED on 08/09/[address] Carvalho office per LICENSED DIRECT ENTRY MIDWIFE recommendation with admitted ongoing intermittent chest pain x 1 month and in office EKG changes from prior w/ noted T wave inversions and ST depression II, III, aVF, specific ST depression V5-V6 w/ patient noted ongoing intermittent 1 month history of midsternal chest discomfort described as burning, aching, pressure-like in nature, worse with any exertion, lasting 15 to 20 minutes normally rated at a 5 out of 10 in severity, improving following laying down and with rest with mild dyspnea associated with worsened episode Thursday prior to current presentation with concurrently associated nausea without emesis and diaphoresis with worsening severity, rated 9 out of 10. Patient currently chest pain-free with recent NG administration in the ED. Work-up in the ED included T 97, heart rate 71, BP 120/86, respiratory rate 16, 96% on 2 L nasal cannula, unremarkable CBC, unremarkable coags, unremarkable BMP, opponent 2.470, EKG with ST depression T wave inversion in leads II, 3, aVF and some mild nonspecific ST depression in V5 and V6 different from prior, chest x-ray with no acute cardiopulmonary findings. The ED patient administered nitroglycerin, therapeutic Lovenox x1. Vacuum Cleaner Mechanic, Dr. Mally avery per ED and reviewed case upon admission. Past Medical History Past Medical History (Chronic Problems): Chronic Problems (Last Reviewed 01/28/18 @ 14:03 by Adriana Bhat) ETOH abuse (Chronic) Atherosclerosis of coronary artery of [place] heart without angina pectoris (Chronic) History of coronary artery stent placement (Chronic 06/05/16) PCI-DAYANARA-RCA 06/05/2016 Nicotine dependence (Chronic) Hyperlipidemia (Chronic) Hypertension (Chronic) Medical History: Medical History (Last Reviewed 01/28/18 @ 14:03 by Adriana Bhat) Atherosclerosis of coronary artery of [place] heart without angina pectoris (Chronic) I25.10 Nicotine dependence (Chronic) F17.200 Hyperlipidemia (Chronic) E78.5 Non-STEMI (non-ST elevated myocardial infarction) (Chronic) I21.4 Hypertension (Chronic) I10 Chronic pain syndrome G89.4 ETOH abuse F10.10 Syncope and collapse R55 Allergies aspirin Adverse Reaction (Verified 08/09/18 12:03) Other hallucinations, upset stomachs Ptxqong-Awo-Zri Reductase Inhibitor Adverse Reaction (Verified 08/09/18 12:03) myalgias ticagrelor [From Brilinta] Adverse Reaction (Verified 08/09/18 12:03) SOB Home Medications: Ambulatory Orders Medication Instructions Recorded Cholecalciferol (Vitamin D3) 1,000 unit PO DAILY 06/05/16 [Vitamin D3] Estradiol [Estrace Vaginal Cream] 1 gm VAGINAL Q7D 06/05/16 [place]-3 Fatty Acids/Fish Oil 1 ea PO DAILY 06/05/16 [[place] 3 Fish Oil Softgel] Aspirin E.C. [Ecotrin] 81 mg PO DAILY@0800 08/09/18 Clopidogrel Bisulfate [Clopidogrel] 75 mg PO DAILY 08/09/18 Ezetimibe 10 mg PO DAILY 08/09/18 Oxycodone HCl/Acetaminophen 1 each PO Q8H PRN PRN 08/09/18 [Percocet 5-325 mg Tablet] ascorbic acid (vitamin C) 500 mg 500 mg PO DAILY cap 08/09/18 capsule duloxetine 60 mg capsule,delayed 60 mg PO DAILY 08/09/18 release methadone 5 mg tablet 2.5 mg PO DAILY tab 08/09/18 vitamin B complex tablet 1 tab PO DAILY 08/09/18 Surgical History: Surgical History (Last Reviewed 08/09/18 @ 11:16 by Penny Valle) History of coronary artery stent placement (Chronic) Onset Date: 06/05/16 Z95.5 PCI-DAYANARA-RCA 06/05/2016 H/O tubal ligation Z98.51 History of tonsillectomy Z98.890, Z90.89 presence of nerve stimulator Surgical History: - - Tubal ligation, implantation of III nerve stimulators for RSD with devices removed however wires remain intact, T+A, PCI x 1. Psychiatric History: No pertinent psych hx SPORTS MANAGEMENT INTERN History: No pertinent SPORTS MANAGEMENT INTERN history Lives: Spouse/ Significant Other Smoking Status: Current every day smoker - Currently transition from cigarette tobacco usage approximately 6 months prior to vaping, unclear amount. Tobacco Use: Vapor Alcohol: Heavy - Patient notes at least 3 to 5 days/week 4 to 5, 12 ounce beers daily. Drugs: - - Former history of cannabis usage, has stopped she notes. - *Family History Maternal Family History: Family History (Last Updated 08/09/18 @ 11:17 by Penny Valle) Father CAD (coronary artery disease) Mother Diabetes Hypertension Thyroid disorder History Items: Cancer, Diabetes, High Cholesterol, Hypertension Paternal Family History: Family History (Last Updated 08/09/18 @ 11:17 by Penny Valle) Father CAD (coronary artery disease) Mother Diabetes Hypertension Thyroid disorder History Items: Cancer, Heart Disease Review of Systems Constitutional: Reports: Malaise, Weakness, Fatigue. Denies: Chills, Fever, Weight Change HEENT: Denies: Head Aches, Sinus Congestion, Sinus Drainage Cardiovascular: Reports: Chest Pain, Chest Pressure. Denies: Heaviness, Light Headedness, Orthopnea, Palpitations, Syncope Respiratory: Reports: Shortness of Breath, Shortness of breath at rest, Shortness of breath upon exertion. Denies: Cough, Sputum production, Wheezing Gastrointestinal: Reports: Nausea. Denies: Abdominal Pain, Vomiting Genitourinary: Denies: Dysuria Musculoskeletal: Reports: Back Pain, Joint Pain. Denies: Joint Tenderness Skin: Denies: Rash, Wounds Neurological: Denies: Numbness, Tingling, Focal weakness Psychiatric: Denies: Anxiety, Depression, Homicidal Ideations, Suicidal Ideations Hematologic/ Lymphatic: Denies: Easy Bruising, Easy Bleeding VTE Information - Inpt Only VTE Present on Admission: No VTE Mechan Device Prophylaxis: SCD's VTE Pharm Prophylaxis ordered?: Yes Patient Problems: Active and Suspected Problems (Last Reviewed 01/28/18 @ 14:03 by Adriana Bhat) Non-STEMI (non-ST elevated myocardial infarction) (Acute) Subjective: Seated upright in the bed, no acute distress, notes chest discomfort is notably improved. Objective: Physical Examination: General: awake, alert, oriented x 3 and cooperative, seated upright in PCU bed in no apparent distress, chest discomfort is notably improved. Skin: normal color, turgor, no icterus, cyanosis. HEENT: AT/NC, EOMI, PERRLA, MMM, no carotid bruits or JVD noted. Lungs: Breath sounds bilateral bases, moderate effort, no rales, ronchi or wheezing. Heart: Regular rate and rhythm; no gallop, rub audible. Abdomen: soft, NTTP, ND, normal BS, no HSM. Extremities: no cyanosis, clubbing, or edema. Neurological: patient awake, alert, oriented x 3; cognitive function intact; pupils equally reactive to light and accomodation; cranial nerves II-XII grossly normal, moving all 4 extremities, no focal deficits, strength mildly moderately globally decreased secondary to acute presentation. Psychiatric: affect appears normal, no acute evidence of depressive or anxiety feelings. - Physical Exam Vital Signs Temp Pulse Resp BP Pulse Ox 97 F L 71 16 120/86 H 96 08/09/18 12:01 08/09/18 12:01 08/09/18 12:01 08/09/18 12:08/09/18 12:15 Oxygen Flow Rate (L/min) 2 Oxygen Delivery Method Nasal Cannula Weight: 159 lb 6.307 oz Body Mass Index (BMI) 25.0 Laboratory Tests Past 24 Hrs 08/09/18 08/09/18 12:08 12:08 WBC 6.3 RBC 5.15 Hgb 14.6 Hct 45.7 MCV 88.7 MCH 28.3 MCHC 31.9 L RDW 13.1 RDW Differential 42.2 Plt Count 256 MPV 9.9 Immature Gran % (Auto) 0.000 Neut % (Auto) 62.6 Lymph % (Auto) 29.9 [place] % (Auto) 5.6 Eos % (Auto) 1.7 Baso % (Auto) 0.2 Absolute Neuts (auto) 3.9 Absolute Lymphs (auto) 1.88 Total Counted Not Reportable Sodium 140 Potassium 4.1 Chloride 104 Carbon Dioxide 30.0 Anion Gap 6 BUN 15 Creatinine 0.98 Estim Creat Clear Calc 60.11 Est GFR (MDRD) Af Amer 75 Est GFR (MDRD) Non-Af 62 BUN/Creatinine Ratio 15.3 Glucose 91 Calcium 9.3 Troponin I 2.470 H* Assessment/Plan All Active Problems (Last Reviewed 01/28/18 @ 14:03 by Adriana Bhat) Non-STEMI (non-ST elevated myocardial infarction) (Acute) Chest pain (Resolved) The patient is a 57 y/o F w/ PMHx: Tobacco use, EtOH Abuse, CAD s/p PCI x 1, HTN, HLD, Chronic Pain Syndrome s/p prior spinal and peripheral nerve stimulator s/p removal with wires still in place, not following with Chronic Pain Management but using old rx Methadone at reduced dose who presents to the [facility] ED on 08/09/[address] Carvalho office per LICENSED DIRECT ENTRY MIDWIFE recommendation with admitted ongoing intermittent chest pain x 1 month and in office EKG changes from prior w/ noted T wave inversions and ST depression II, III, aVF, specific ST depression V5-V6 w/ patient noted ongoing intermittent 1 month history of midsternal chest discomfort described as burning, aching, pressure-like in nature, worse with any exertion, lasting 15 to 20 minutes normally rated at a 5 out of 10 in severity, improving following laying down and with rest with mild dyspnea associated with worsened episode Thursday prior to current presentation with concurrently associated nausea without emesis and diaphoresis with worsening severity, rated 9 out of 10. (1) Chest Pain w/ Acute NSTEMI: Work-up in the ED included T 97, heart rate 71, BP 120/86, respiratory rate 16, 96% on 2 L nasal cannula, unremarkable CBC, unremarkable coags, unremarkable BMP, opponent 2.470, EKG with ST depression T wave inversion in leads II, 3, aVF and some mild nonspecific ST depression in V5 and V6 different from prior, chest x-ray with no acute cardiopulmonary findings. Will admit to PCU, maintain on a monitored bed, continue serial cardiac enzymes and EKGs. Obtain magnesium level upon admission. Continue therapeutic lovenox. Continue medical management w/ asa, plavix, BB, statin allergy noted w/ AM FLP. Cardiology consulted, plan for cardiac catheterization. Maintain NPO after midnight. ASA, NG, morphine. (2) CAD: s/p PCI DAYANARA RCA 06/05/2016, maintain on asa, plavix, statin allergy noted, added low dose BB. (3) EtOH Abuse: Patient notes routine consumption of 4-5, 12 ounce beers [place] of the weekdays. Discussed appropriate alcoholic intake and female. Will maintain on CIWA protocol, MVI, thiamine and folic acid. Mag and false pending. (4) Tobacco Abuse: Encouraged cessation including of vapor products, inpatient consultation per RT, NR if desired for currently deferred given acute presentation which was discussed and amenable per patient. (5) Chronic pain syndrome, RDS: Prior spinal and peripheral stimulators, devices have been removed, wires remain, not following with chronic pain management however she is continuing to take oral methadone and oral narcotic therapies which are her prior scripts at a reduced dose to make these last. Continue to avoid withdrawal and have PRN agents above this given acute presentation. (6) Hypertension: BP not elevated upon ED presentation, not on regimen, add low- dose beta-devin given acute presentation, PRN hydralazine. (7) Hyperlipidemia: Statin allergy noted. FLP in AM (8) DVT Prophylaxis: SCDs, therapeutic lovenox. Code Visit Inpatient E&M: 15934 Init Hosp L3
[2018-08-09] MEDS: Enoxaparin 80 MG/0.8 ML Syringe 70 MG SC (13:24)
--- NOTE | 2018-08-09 13:24 | CASEMGMT ---
According to O website, the following are in-network tertiary facilities: [facility], [place], [place], [place], [facility], [facility], [facility], [place], and . Sergio MCMULLEN CM
--- NOTE | 2018-08-09 13:28 | CASEMGMT ---
RN CM Assessment Introduced role of RN CM to patient.? Patient is alert, oriented and able?to participate in RN CM Assessment. ?Care providers, pharmacy, and demographics verified. Presentation: CP Admit Dx: NSTEMI, CP Re-Admit: No Barriers/Issues: None PCP: Rosalind Jama Specialists: None Preferred Pharmacy: [facility] Insurance: [facility] Rx Benefit:?Yes ?LNOK: Dtr summer LW/HPOA: No, Would like info, Living Arrangements:? Lives with 2 sons in [place] home, 2 steps to enter ADL?s: Independent with ambulation and ADL's Transportation: Patient drives, drove self to hospital and plans to drive on DC DME: CPAP HHC: [facility] in past SNF: None Goal: Home DC PLAN: Home with no anticipated needs identified at this time. Santiago Morrison RNCM
--- NOTE | 2018-08-09 14:38 | EKG12_ITS ---
Test Reason : AM EKG Blood Pressure : / mmHG Vent. Rate : 060 BPM Atrial Rate : 060 BPM P-R Int : 126 ms QRS Dur : 092 ms QT Int : 432 ms P-R-T Axes : 049 040 -57 degrees QTc Int : 432 ms Normal sinus rhythm ST & T wave abnormality, consider inferior ischemia Abnormal ECG When compared with ECG of 09-AUG-2018 14:53, MANUAL COMPARISON REQUIRED, DATA IS UNCONFIRMED Confirmed by ALLYN CHAUHAN, TESS ([id number]), fashion editor SAMY BASILIO ([id number]) on 08/13/2018 1:54:29 PM Referred By: YOLANDA Confirmed By:TESS GRUBER MD
--- NOTE | 2018-08-09 14:38 | ECHOD_ITS ---
Reason For Study: Chest Pain Procedure This was a 2D Doppler, Color Flow transthoracic echocardiogram. Exam performed portable in patient room. Left Ventricle Normal LV size. Left ventricular systolic function is normal. The estimated ejection fraction is 55 %. Stage 1 diastolic dysfunction. No regional wall motion abnormalities noted. Right Ventricle Normal RV size. Normal systolic function. Atria Normal left atrium. Normal right atrium. Mitral Valve Normal mitral valve. Mild (1+) eccentric mitral valve insufficiency. Tricuspid Valve Normal tricuspid valve. Aortic Valve Normal aortic valve. Trisinus/trileaflet aortic valve. Pulmonic Valve Normal pulmonic valve. Great Vessels Normal aortic root. The pulmonary artery is normal size. Normal inferior vena cava. Pericardium/Pleural No pericardial effusion. MMode/2D Measurements & Calculations LVIDd: 5.1 cm IVSd: 1.2 cm Ao root diam: 3.2 cm LVIDs: 3.9 cm LVPWd: 0.98 cm LA dimension: 4.0 cm FS: 22.9 % LAV(MOD-bp): 35.9 ml LVAd ap4: 30.4 cm2 SV(MOD-sp4): 50.4 ml LAV(MOD-bp) Indexed: 19.6 ml/m2 EDV(MOD-sp4): 103.2 ml LAV(MOD-sp2): 41.4 ml EDV(sp4-el): 106.6 ml LAV(MOD-sp4): 30.9 ml LVAs ap4: 19.3 cm2 ESV(MOD-sp4): 52.7 ml ESV(sp4-el): 52.8 ml EF(MOD-sp4): 48.9 % EF(sp4-el): 50.5 % SV(sp4-el): 53.8 ml LA A4 area: 12.7 cm2 RA A4 area: 11.4 cm2 Time Measurements MV dec time: 0.30 sec Doppler Measurements & Calculations MV E max deny: 37.7 cm/sec Lat Peak E' Deny: 5.9 cm/sec Med Peak E' Deny: 2.8 cm/sec MV A max deny: 72.5 cm/sec E/E' lat: 6.4 E/E' med: 13.3 MV E/A: 0.52 MV V2 max: 94.4 cm/sec MV P1/2t max deny: 52.0 cm/sec Ao V2 max: 108.7 cm/sec MV max P.6 mmHg MV P1/2t: 122.8 msec Ao max P.7 mmHg MV V2 mean: 38.3 cm/sec Ao V2 mean: 62.8 cm/sec MV mean P.70 mmHg MV dec slope: 124.1 cm/sec2 Ao mean P.9 mmHg MV V2 VTI: 23.2 cm MVA(P1/2t): 1.8 cm2 Ao V2 VTI: 18.1 cm LV V1 max: 85.7 cm/sec PA V2 max: 73.2 cm/sec LV V1 max P.9 mmHg LV V1 mean P.3 mmHg LV V1 mean: 53.1 cm/sec LV V1 VTI: 17.5 cm Interpretation Summary Normal LV size. Left ventricular systolic function is normal. The estimated ejection fraction is 55 %. Stage 1 diastolic dysfunction. Mild (1+) eccentric mitral valve insufficiency. Ordering Physician: Samira Yung Performed By: Carlos Alberto Diamond RCS
--- NOTE | 2018-08-09 15:02 | CPS ---
Pt uses a CPAP @[facility] @home, family will bring her machine in tonight.
[2018-08-09 15:27] LABS: International Normalized Ratio 1.1; Partial Thromboplast Time 34.2 Seconds (24.1-36.2); Prothrombin Time (Protime)PT. 13.5 SECONDS (11.7-14.9)
[2018-08-09 15:36] LABS: Magnesium 2.2 mg/dL (1.6-2.6)
[2018-08-09 15:44] LABS: Alcohol, Blood (Medical)-Serum < 3.0 mg/dL
[2018-08-09] MEDS: 0.9% Normal Saline 1,000 ML 125 ML IV ×2 (15:53→23:45)
[2018-08-09] MEDS: Thiamine Hydrochloride 100 MG Tablet PO (18:47)
[2018-08-09 19:23] LABS: Amphetamine Urine VISTA NEGATIVE (<1000 ng/mL); Barbiturate Urine VISTA NEGATIVE (< 200 ng/mL); Benzodiazepine Urine VISTA NEGATIVE (< 200 ng/mL); Cocaine Urine VISTA NEGATIVE (< 300 ng/mL); Ecstacy Urine VISTA NEGATIVE (< 500 ng/mL); Methadone Urine VISTA POSITIVE (< 300 ng/mL); PCP Urine VISTA NEGATIVE (< 25 ng/mL); THC Urine VISTA NEGATIVE (< 50 ng/mL); Vista UDS pH Range 6
--- NOTE | 2018-08-09 19:54 | PCM.CONS.C ---
Reason for Consult Date of Consultation: 08/09/18 Reason for Consultation: Chest pain. History of Present Illness: The patient is a 57 year old F with a past medical history consistent of hypertension, hyperlipidemia, coronary artery disease status post previous angioplasty and stenting of the right coronary artery with a 12 x 28 mm Promus drug-eluting stent. She has had a history of chronic pain management but presented this time with ongoing intermittent chest discomfort over the last month. She describes this as a burning and aching associated with a pressure-like sensation. It seems to be worse with exertion and lasting 15-20 minutes. There was some shortness of breath associated with the above. She presented to the office today and underwent an EKG which demonstrated evidence of ST depression noted in leads II, III and aVF and V5 and V6. She was sent to the emergency room and blood work and cardiac enzymes were obtained. He was noted to be abnormal she was admitted and we are seeing her for further evaluation and management. She currently appears to be free of discomfort. She has not had any dizziness or diaphoresis near syncope or syncope. [] Past Medical History Allergies/Adverse Reactions: Allergies aspirin Adverse Reaction (Verified 08/09/18 12:03) Other hallucinations, upset stomachs Djymzpw-Qpe-Lhq Reductase Inhibitor Adverse Reaction (Verified 08/09/18 12:03) myalgias ticagrelor [From Brilinta] Adverse Reaction (Verified 08/09/18 12:03) SOB Home Medications: Ambulatory Orders Medication Instructions Recorded Cholecalciferol (Vitamin D3) 1,000 unit PO DAILY 06/05/16 [Vitamin D3] Estradiol [Estrace Vaginal Cream] 1 gm VAGINAL Q7D 06/05/16 [place]-3 Fatty Acids/Fish Oil 1 ea PO DAILY 06/05/16 [[place] 3 Fish Oil Softgel] Aspirin E.C. [Ecotrin] 81 mg PO DAILY@0800 08/09/18 Clopidogrel Bisulfate [Clopidogrel] 75 mg PO DAILY 08/09/18 Ezetimibe 10 mg PO DAILY 08/09/18 Oxycodone HCl/Acetaminophen 1 each PO Q8H PRN PRN 08/09/18 [Percocet 5-325 mg Tablet] ascorbic acid (vitamin C) 500 mg 500 mg PO DAILY cap 08/09/18 capsule duloxetine 60 mg capsule,delayed 60 mg PO DAILY 08/09/18 release methadone 5 mg tablet 2.5 mg PO DAILY tab 08/09/18 vitamin B complex tablet 1 tab PO DAILY 08/09/18 Past Medical History (Chronic Problems): Chronic Problems (Last Reviewed 01/28/18 @ 14:03 by Adriana Bhat) ETOH abuse (Chronic) Atherosclerosis of coronary artery of [place] heart without angina pectoris (Chronic) History of coronary artery stent placement (Chronic 06/05/16) PCI-DAYANARA-RCA 06/05/2016 Nicotine dependence (Chronic) Hyperlipidemia (Chronic) Hypertension (Chronic) Surgical History: - - Tubal ligation, implantation of III nerve stimulators for RSD with devices removed however wires remain intact, T+A, PCI x 1. Psychiatric History: No pertinent psych hx RECEPTIONIST TELEPHONE OPERATOR History: No pertinent RECEPTIONIST TELEPHONE OPERATOR history - *Family History Maternal Family History: Family History (Last Updated 08/09/18 @ 11:17 by Penny Valle) Father CAD (coronary artery disease) Mother Diabetes Hypertension Thyroid disorder History Items: Cancer, Diabetes, High Cholesterol, Hypertension Paternal Family History: Family History (Last Updated 08/09/18 @ 11:17 by Penny Valle) Father CAD (coronary artery disease) Mother Diabetes Hypertension Thyroid disorder History Items: Cancer, Heart Disease Lives: Spouse/ Significant Other Smoking Status: Current every day smoker - Currently transition from cigarette tobacco usage approximately 6 months prior to vaping, unclear amount. Tobacco Use: Vapor Alcohol: Heavy - Patient notes at least 3 to 5 days/week 4 to 5, 12 ounce beers daily. Drugs: None, - - Former history of cannabis usage, has stopped she notes. Review of Systems - Review of Systems General: Denies: Fever, Night Sweats, Fatigue HEENT: Denies: Vision Change Cardiovascular: Reports: Chest Discomfort at Rest, Chest Discomfort with Exertion, Chest Tightness, Shortness of Breath. Denies: Chest Discomfort, Orthopnea, PND, Peripheral Edema, Palpitations, Lightheadedness, Dizziness, Near Syncope, Syncope Respiratory: Denies: Cough, Sputum Production, Hemoptysis Gastrointestinal: Denies: Hematemesis, Hematochezia, Melena Genitourinary: Denies: Dysuria, Hematuria Skin: Denies: Rash Neurological: Denies: Dizziness Psychiatric: Denies: Anxiety Endocrine: Denies: Heat Intolerance Hematologic/ Lymphatic: Denies: Anemia Subjectve: Young lady in no apparent distress Objective: Vital Signs Temp Pulse Resp BP Pulse Ox 98.4 F 68 15 93/57 L 99 08/09/18 18:36 08/09/18 18:36 08/09/18 18:36 08/09/18 18:36 08/09/18 18:36 Oxygen Flow Rate (L/min) 2 Oxygen Delivery Method Nasal Cannula Weight: 158 lb 15.253 oz Body Mass Index (BMI) 24.9 Intake and Output for Last 24 Hours 08/07/18 08/08/18 08/09/18 23:59 23:59 23:59 Intake Total 712 / 712 Balance 712 / 712 General: Awake, Alert, Oriented x 3 HEENT: PERRL, EOMI, Sclera Non Icteric Neck: Supple, Good ROM, No Lymph Node Enlargement Lungs: Clear to auscultation Cardiovascular: Regular Rhythm, Normal S1, Normal S2, No Murmurs, No Rubs, No Gallops Vascular: No Carotid Bruits, Normal Femoral Pulses, Normal Radial Pulses, Normal Dorsalis Pedal Pulse, Normal Posterior Tibial Pulses Abdomen: Bowel Sounds Present, Soft, Non Tender, No HSM, No Organomegaly Extremities: No Cyanosis, No Clubbing, No edema Musculoskeletal: No Erythema Skin: No Rashes Lymphatic: No Lymph Node Enlargement Neurological: No Focal Motor or Sensory Deficit Psych/Mental Status: Appropriate 08/09/18 12:08: WBC 6.3, RBC 5.15, Hgb 14.6, Hct 45.7, MCV 88.7, MCH 28.3, MCHC 31.9 L, RDW 13.1, RDW Differential 42.2, Plt Count 256, MPV 9.9, Immature Gran % (Auto) 0.000, Neut % (Auto) 62.6, Lymph % (Auto) 29.9, [place] % (Auto) 5.6, Eos % (Auto) 1.7, Baso % (Auto) 0.2, Absolute Neuts (auto) 3.9, Total Counted Not Reportable 08/09/18 12:08: Sodium 140, Potassium 4.1, Chloride 104, Carbon Dioxide 30.0, Anion Gap 6, BUN 15, Creatinine 0.98, Est GFR (MDRD) Af Amer 75, Est GFR (MDRD) Non-Af 62, BUN/Creatinine Ratio 15.3, Glucose 91, Calcium 9.3, Troponin I 2.470 H* 08/09/18 15:05: PT 13.5, INR 1.1, APTT 34.2 08/09/18 15:05: Phosphorus 4.0, Magnesium 2.2 08/09/18 15:05: Troponin I 3.200 H* 08/09/18 18:20: Troponin I 2.770 H* Rhythm: EKG: Normal sinus rhythm with downsloping ST depression noted in leads II, III and aVF ECHO: Preserved left ventricular systolic function Assessment/Plan 1. Non-ST elevation myocardial infarction Patient presents with chest discomfort and is noted to have a non-ST elevation myocardial infarction. Recommendation will be to continue with aspirin Continue with the beta-devin Discontinue tobacco use Continue clopidogrel We will schedule left heart catheterization in a.m. The risk benefits and alternatives have been explained to her she understands and agrees to proceed. 2. Hypertension Blood pressure is under good control will continue current medical therapy 3. Factor modification Will seriously consider risk factor modification with reduction in tobacco use, a more appropriate diet as well as adherence to medications and follow-up Thank you for allowing me to participate in the care of your patient. Please don't hesitate to call if any issues arise
--- NOTE | 2018-08-09 19:58 | CON.PCM_ITS ---
Reason for Consult Date of Consultation: 08/09/18 Reason for Consultation: Chest pain. History of Present Illness: The patient is a 57 year old F with a past medical history consistent of hypertension, hyperlipidemia, coronary artery disease status post previous angioplasty and stenting of the right coronary artery with a 12 x 28 mm Promus drug-eluting stent. She has had a history of chronic pain management but presented this time with ongoing intermittent chest discomfort over the last month. She describes this as a burning and aching associated with a pressure- like sensation. It seems to be worse with exertion and lasting 15-20 minutes. There was some shortness of breath associated with the above. She presented to the office today and underwent an EKG which demonstrated evidence of ST depression noted in leads II, III and aVF and V5 and V6. She was sent to the emergency room and blood work and cardiac enzymes were obtained. He was noted to be abnormal she was admitted and we are seeing her for further evaluation and management. She currently appears to be free of discomfort. She has not had any dizziness or diaphoresis near syncope or syncope. [] Past Medical History Allergies/Adverse Reactions: Allergies aspirin Adverse Reaction (Verified 08/09/18 12:03) Other hallucinations, upset stomachs Dbolnha-Mgp-Sxk Reductase Inhibitor Adverse Reaction (Verified 08/09/18 12:03) myalgias ticagrelor [From Brilinta] Adverse Reaction (Verified 08/09/18 12:03) SOB Home Medications: Ambulatory Orders Medication Instructions Recorded Cholecalciferol (Vitamin D3) 1,000 unit PO DAILY 06/05/16 [Vitamin D3] Estradiol [Estrace Vaginal Cream] 1 gm VAGINAL Q7D 06/05/16 [place]-3 Fatty Acids/Fish Oil 1 ea PO DAILY 06/05/16 [[place] 3 Fish Oil Softgel] Aspirin E.C. [Ecotrin] 81 mg PO DAILY@0800 08/09/18 Clopidogrel Bisulfate [Clopidogrel] 75 mg PO DAILY 08/09/18 Ezetimibe 10 mg PO DAILY 08/09/18 Oxycodone HCl/Acetaminophen 1 each PO Q8H PRN PRN 08/09/18 [Percocet 5-325 mg Tablet] ascorbic acid (vitamin C) 500 mg 500 mg PO DAILY cap 08/09/18 capsule duloxetine 60 mg capsule,delayed 60 mg PO DAILY 08/09/18 release methadone 5 mg tablet 2.5 mg PO DAILY tab 08/09/18 vitamin B complex tablet 1 tab PO DAILY 08/09/18 Past Medical History (Chronic Problems): Chronic Problems (Last Reviewed 01/28/18 @ 14:03 by Adriana Bhat) ETOH abuse (Chronic) Atherosclerosis of coronary artery of [place] heart without angina pectoris (Chronic) History of coronary artery stent placement (Chronic 06/05/16) PCI-DAYANARA-RCA 06/05/2016 Nicotine dependence (Chronic) Hyperlipidemia (Chronic) Hypertension (Chronic) Surgical History: - - Tubal ligation, implantation of III nerve stimulators for RSD with devices removed however wires remain intact, T+A, PCI x 1. 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 - *Family History Maternal Family History: Family History (Last Updated 08/09/18 @ 11:17 by Penny Valle) Father CAD (coronary artery disease) Mother Diabetes Hypertension Thyroid disorder History Items: Cancer, Diabetes, High Cholesterol, Hypertension Paternal Family History: Family History (Last Updated 08/09/18 @ 11:17 by Penny Valle) Father CAD (coronary artery disease) Mother Diabetes Hypertension Thyroid disorder History Items: Cancer, Heart Disease Lives: Spouse/ Significant Other Smoking Status: Current every day smoker - Currently transition from cigarette tobacco usage approximately 6 months prior to vaping, unclear amount. Tobacco Use: Vapor Alcohol: Heavy - Patient notes at least 3 to 5 days/week 4 to 5, 12 ounce beers daily. Drugs: None, - - Former history of cannabis usage, has stopped she notes. Review of Systems - Review of Systems General: Denies: Fever, Night Sweats, Fatigue HEENT: Denies: Vision Change Cardiovascular: Reports: Chest Discomfort at Rest, Chest Discomfort with Exertion, Chest Tightness, Shortness of Breath. Denies: Chest Discomfort, Orthopnea, PND, Peripheral Edema, Palpitations, Lightheadedness, Dizziness, Near Syncope, Syncope Respiratory: Denies: Cough, Sputum Production, Hemoptysis Gastrointestinal: Denies: Hematemesis, Hematochezia, Melena Genitourinary: Denies: Dysuria, Hematuria Skin: Denies: Rash Neurological: Denies: Dizziness Psychiatric: Denies: Anxiety Endocrine: Denies: Heat Intolerance Hematologic/ Lymphatic: Denies: Anemia Subjectve: Young lady in no apparent distress Objective: Vital Signs Temp Pulse Resp BP Pulse Ox 98.4 F 68 15 93/57 L 99 08/09/18 18:36 08/09/18 18:36 08/09/18 18:36 08/09/18 18:36 08/09/18 18:36 Oxygen Flow Rate (L/min) 2 Oxygen Delivery Method Nasal Cannula Weight: 158 lb 15.253 oz Body Mass Index (BMI) 24.9 Intake and Output for Last 24 Hours 08/07/18 08/08/18 08/09/18 23:59 23:59 23:59 Intake Total 712 / 712 Balance 712 / 712 General: Awake, Alert, Oriented x 3 HEENT: PERRL, EOMI, Sclera Non Icteric Neck: Supple, Good ROM, No Lymph Node Enlargement Lungs: Clear to auscultation Cardiovascular: Regular Rhythm, Normal S1, Normal S2, No Murmurs, No Rubs, No Gallops Vascular: No Carotid Bruits, Normal Femoral Pulses, Normal Radial Pulses, Normal Dorsalis Pedal Pulse, Normal Posterior Tibial Pulses Abdomen: Bowel Sounds Present, Soft, Non Tender, No HSM, No Organomegaly Extremities: No Cyanosis, No Clubbing, No edema Musculoskeletal: No Erythema Skin: No Rashes Lymphatic: No Lymph Node Enlargement Neurological: No Focal Motor or Sensory Deficit Psych/Mental Status: Appropriate 08/09/18 12:08: WBC 6.3, RBC 5.15, Hgb 14.6, Hct 45.7, MCV 88.7, MCH 28.3, MCHC 31.9 L, RDW 13.1, RDW Differential 42.2, Plt Count 256, MPV 9.9, Immature Gran % (Auto) 0.000, Neut % (Auto) 62.6, Lymph % (Auto) 29.9, [place] % (Auto) 5.6, Eos % (Auto) 1.7, Baso % (Auto) 0.2, Absolute Neuts (auto) 3.9, Total Counted Not Reportable 08/09/18 12:08: Sodium 140, Potassium 4.1, Chloride 104, Carbon Dioxide 30.0, Anion Gap 6, BUN 15, Creatinine 0.98, Est GFR (MDRD) Af Amer 75, Est GFR (MDRD) Non-Af 62, BUN/Creatinine Ratio 15.3, Glucose 91, Calcium 9.3, Troponin I 2.470 H* 08/09/18 15:05: PT 13.5, INR 1.1, APTT 34.2 08/09/18 15:05: Phosphorus 4.0, Magnesium 2.2 08/09/18 15:05: Troponin I 3.200 H* 08/09/18 18:20: Troponin I 2.770 H* Rhythm: EKG: Normal sinus rhythm with downsloping ST depression noted in leads II, III and aVF ECHO: Preserved left ventricular systolic function Assessment/Plan 1. Non-ST elevation myocardial infarction * Patient presents with chest discomfort and is noted to have a non-ST elevation myocardial infarction. * Recommendation will be to continue with aspirin * Continue with the beta-devin * Discontinue tobacco use * Continue clopidogrel * We will schedule left heart catheterization in a.m. The risk benefits and alternatives have been explained to her she understands and agrees to proceed. * 2. Hypertension * Blood pressure is under good control will continue current medical therapy * 3. Factor modification * Will seriously consider risk factor modification with reduction in tobacco use, a more appropriate diet as well as adherence to medications and follow-up * * Thank you for allowing me to participate in the care of your patient. Please don't hesitate to call if any issues arise
[2018-08-09] MEDS: Famotidine 20 MG Tablet PO (22:20)
[2018-08-09] MEDS: Carvedilol 3.125 MG TABLET PO (22:20)
[2018-08-10] VITALS (27 sets, daily range): BP systolic 81–130; BP diastolic 43–85; PULSE 53–77; RESP 11–22; TEMP 36.4–37.9; O2SAT 83–98; BMI 24.9
[2018-08-10 00:35] LABS: Bacteria 0 SEEN /hpf (None Seen); Mucous, Urine 0 SEEN /hpf (<or=2+); Red Blood Cells-Urine 0 SEEN /hpf (0-5); White Blood Cells 0 SEEN /hpf (0-5)
[2018-08-10 00:41] LABS: Color, Urine Yellow (Yellow); Glucose, Dipstick Normal (Normal); Ketone-Dipstick 5 mg/dl (Negative); Leukocyte Esterase-Dipstick Negative /ul (Negative); Nitrite-Dipstick Negative (Negative); Occult Blood-Urine Negative /ul (Negative); Protein-Dipstick Negative (Negative); Urine Bilirubin Dipstick Negative (Negative); Urine Clarity Clear (Clear); Urine Urobilinogen Normal (Normal)
[2018-08-10 00:50] LABS: Squamous Epithelial Cells - UA 0-5 SEEN /hpf (5-10)
[2018-08-10 04:40] LABS: Hematocrit 38.2 % (37-47); Hemoglobin 12.3 g/dl (12.0-15.0); Mean Corp Hgb Conc 32.2 g/gl (32-36); Mean Corpuscular Hgb 28.9 pg (27.0-32.0); Mean Corpuscular Volume 89.7 fL (81-99); Mean Platelet Vol. 10.1 fl (6.2-12.0); Platelet Count 194 K/mm3 (150-450); RBC Distribution Width CV 12.5 % (11.6-14.6); RBC Distribution Width SD 40.6 fl (35.1-43.9); Red Blood Count 4.26 M/mm3 (4.2-5.4)
[2018-08-10 04:41] LABS: Scan Indicated on CBC? Y/N NO
[2018-08-10 04:44] LABS: International Normalized Ratio 1.1; Prothrombin Time (Protime)PT. 13.7 SECONDS (11.7-14.9)
[2018-08-10 04:45] LABS: Partial Thromboplast Time 28.6 Seconds (24.1-36.2)
[2018-08-10] MEDS: Famotidine 20 MG Tablet PO ×2 (05:10→21:06)
[2018-08-10] MEDS: Aspirin 81 MG TAB.CHEW PO (05:10)
[2018-08-10] MEDS: Clopidogrel Bisulfate 75 MG Tablet PO (05:10)
[2018-08-10 05:23] LABS: ALB/GLOB Ratio 0.9 RATIO (0.9-2.4); AST(SGOT) 28 U/L (15-37); Alanine Aminotransfer ALT/SGPT 21 U/L (13-56); Alkaline Phosphatase 74 U/L (45-117); Anion Gap 7 (5-15); BUN 15 mg/dL (7-18); BUN/Creat Ratio 19.3 RATIO (10-20); Calcium,Total 7.8 mg/dL (8.5-10.1); Chloride 111 mmol/L (98-107); Cholesterol 203 mg/dL (200); Creatinine, Serum 0.78 mg/dL (0.55-1.02); EST Glomerular Filtration Rate 80 mL/min (>60); Est Glom Filt Rate - Afr Amer 97 mL/min (>60); Estimated Creatinine Clearance 75.52 ml/min; Globulin 3.4 g/dL (2.2-4.2); Glucose 122 mg/dL (74-106); High Density Lipoprotein 36 mg/dL; Potassium 3.9 mmol/L (3.5-5.1); Protein, Total 6.4 g/dL (6.4-8.2); Sodium Level 144 mmol/L (136-145); Triglycerides 205 mg/dL; Very Low Density Lipoprotein 41 mg/dL (5-40)
--- NOTE | 2018-08-10 05:55 | EKG12_ITS ---
Test Reason : CP ADMIT Blood Pressure : / mmHG Vent. Rate : 054 BPM Atrial Rate : 054 BPM P-R Int : 126 ms QRS Dur : 098 ms QT Int : 422 ms P-R-T Axes : 060 036 -45 degrees QTc Int : 400 ms Sinus bradycardia Marked ST abnormality, possible inferior subendocardial injury Abnormal ECG Confirmed by ALLYN CHAUHAN, TESS ([id number]), staff editor SAMY BASILIO ([id number]) on 08/13/2018 1:56:36 PM Referred By: YOLANDA Confirmed By:TESS GRUBER MD
--- NOTE | 2018-08-10 07:25 | PCM.PN.HOSP ---
Patient Problems: Active and Suspected Problems (Last Reviewed 01/28/18 @ 14:03 by Adriana Bhat) Non-STEMI (non-ST elevated myocardial infarction) (Acute) Subjective: Patient with no acute events overnight per self and per nursing report. Patient underwent cardiac catheterization this morning and following and was transition to the ICU for continued close monitoring. Patient currently noted that during the cardiac catheterization similar midsternal chest discomfort described as a pressure-like sensation improving currently with no associated symptoms. Patient denies fevers, chills, nausea, emesis, abdominal pain or dyspnea. Objective: Physical Examination: General: awake, alert, oriented x 3 and cooperative, laying in the ICU bed, recent transition from catheterization s/p PCI, notes chest discomfort during, resolved currently. Skin: normal color, turgor, no icterus, cyanosis, R wrist w/ compression device in place. HEENT: AT/NC, EOMI, PERRLA, mildly dry MM. Lungs: Diminished BS BL bases, moderate effort, no rales, ronchi or wheezing to anterior and side. Heart: Regular rate and rhythm; no gallop, rub audible. Abdomen: soft, NTTP, ND, normal BS, no HSM. Extremities: no cyanosis, clubbing, or edema, R wrist with compression device in place, s/p recent cardiac catheterization. Neurological: patient awake, alert, oriented x 3; cognitive function intact; pupils equally reactive to light and accomodation; cranial nerves II-XII grossly normal, moving all 4 extremities, no focal deficits, strength given recent catheterization purposely reduced. Psychiatric: affect appears normal, no acute evidence of depressive or anxiety feelings. Vitals/I&O's: Vital Signs Temp Pulse Resp BP Pulse Ox 98.4 F 62 18 99/59 L 98 08/10/18 05:21 08/10/18 05:21 08/10/18 05:21 08/10/18 05:21 08/10/18 05:21 Oxygen Flow Rate (L/min) 2 Oxygen Delivery Method Nasal Cannula Weight: 158 lb 15.253 oz Body Mass Index (BMI) 24.9 Intake and Output for Last 24 Hours 08/08/18 08/09/18 08/10/18 23:59 23:59 23:59 Intake Total 1588 / 1588 730 / 730 Balance 1588 / 1588 730 / 730 Laboratory Results 08/09/18 12:08: WBC 6.3, RBC 5.15, Hgb 14.6, Hct 45.7, MCV 88.7, MCH 28.3, MCHC 31.9 L, RDW 13.1, RDW Differential 42.2, Plt Count 256, MPV 9.9, Immature Gran % (Auto) 0.000, Neut % (Auto) 62.6, Lymph % (Auto) 29.9, [place] % (Auto) 5.6, Eos % (Auto) 1.7, Baso % (Auto) 0.2, Absolute Neuts (auto) 3.9, Absolute Lymphs (auto) 1.88, Total Counted Not Reportable 08/09/18 12:08: Sodium 140, Potassium 4.1, Chloride 104, Carbon Dioxide 30.0, Anion Gap 6, BUN 15, Creatinine 0.98, Estim Creat Clear Calc 60.11, Est GFR (MDRD) Af Amer 75, Est GFR (MDRD) Non-Af 62, BUN/Creatinine Ratio 15.3, Glucose 91, Calcium 9.3, Troponin I 2.470 H* 08/09/18 15:05: PT 13.5, INR 1.1, APTT 34.2 08/09/18 15:05: Phosphorus 4.0, Magnesium 2.2 08/09/18 15:05: Troponin I 3.200 H* 08/09/18 18:20: Troponin I 2.770 H* 08/09/18 18:30: Urine Color Yellow, Urine Clarity Clear, Urine pH 5.0, Ur Specific [place] 1.020, Urine Protein Negative, Urine Glucose (UA) Normal, Urine Ketones 5 H, Urine Occult Blood Negative, Urine Nitrite Negative, Urine Bilirubin Negative, Urine Urobilinogen Normal, Ur Leukocyte Esterase Negative, Urine RBC 0 SEEN, Urine WBC 0 SEEN, Ur Squamous Epith Cells 0-5 SEEN, Urine Bacteria 0 SEEN, Urine Mucus 0 SEEN 08/09/18 18:50: Urine Opiates Screen NEGATIVE, Urine Methadone Screen POSITIVE H, Ur Barbiturates Screen NEGATIVE, Ur Phencyclidine Scrn NEGATIVE, Ur Amphetamines Screen NEGATIVE, U Methamphetamin-MDMA NEGATIVE, U Benzodiazepines Scrn NEGATIVE, Urine Cocaine Screen NEGATIVE, U Cannabinoids Screen NEGATIVE, Ur Drug Screen Comment 08/10/18 04:28: WBC 5.0, RBC 4.26, Hgb 12.3, Hct 38.2, MCV 89.7, MCH 28.9, MCHC 32.2, RDW 12.5, RDW Differential 40.6, Plt Count 194, MPV 10.1 08/10/18 04:28: Sodium 144, Potassium 3.9, Chloride 111 H, Carbon Dioxide 26.0, Anion Gap 7, BUN 15, Creatinine 0.78, Estim Creat Clear Calc 75.52, Est GFR (MDRD) Af Amer 97, Est GFR (MDRD) Non-Af 80, BUN/Creatinine Ratio 19.3, Glucose 122 H, Calcium 7.8 L, Total Bilirubin 0.20, AST 28, ALT 21, Alkaline Phosphatase 74, Total Protein 6.4, Albumin 3.0 L, Globulin 3.4, Albumin/Globulin Ratio 0.9, Triglycerides 205 H, Cholesterol 203 H, LDL Cholesterol 126, VLDL Cholesterol 41 H, HDL Cholesterol 36 L 08/10/18 04:28: PT 13.7, INR 1.1, APTT 28.6 08/10/18 09:12: Ethyl Alcohol < 3.0 Current Medications Al Hydroxide/Mg Hydroxide (Mylanta Ii) 30 ml PO Q6H PRN PRN PRN Reason: Gastric burning Aspirin (Aspirin, Baby) 81 mg PO DAILY@0800 [facility] Last Admin: 08/10/18 05:10 Dose: 81 mg Carvedilol (Coreg) 3.125 mg PO BID [facility] Last Admin: 08/09/18 22:20 Dose: 3.125 mg Cholecalciferol (Vitamin D) 1,000 unit PO DAILY [facility] Clopidogrel Bisulfate (Plavix) 75 mg PO DAILY [facility] Last Admin: 08/10/18 05:10 Dose: 75 mg Duloxetine HCl (Cymbalta) 60 mg PO DAILY [facility] Enoxaparin Sodium (Lovenox) 70 mg SC Q12@0600,1800 [facility] Famotidine (Pepcid) 20 mg PO BID [facility] Last Admin: 08/10/18 05:10 Dose: 20 mg Folic Acid (Folic Acid) 1 mg PO DAILY@0800 [facility] Stop: 08/12/18 08:01 Hydralazine HCl (Apresoline Iv) 10 mg IV Q4H PRN PRN PRN Reason: SBP > 160 Sodium Chloride () 1,000 mls @ 125 mls/hr IV .Q8H [facility] Last Admin: 08/09/18 23:45 Dose: 125 mls/hr Sodium Chloride () 1,000 mls @ 15 mls/hr IV .Q48H [facility] Lorazepam (Ativan) 2 mg PO Q2H PRN PRN; Protocol PRN Reason: CIWA score > 8 but <15 Lorazepam (Ativan) 2 mg IV Q2H PRN PRN; Protocol PRN Reason: CIWA score > 8 but <15 Lorazepam (Ativan) 2 mg PO UD PRN; Protocol PRN Reason: CIWA score >/=15. Lorazepam (Ativan) 2 mg IV UD PRN; Protocol PRN Reason: CIWA score >/=15. Magnesium Hydroxide (Milk Of Magnesia) 30 ml PO DAILY PRN PRN Reason: Constipation Methadone HCl () 2.5 mg PO DAILY [facility] Morphine Sulfate () 2 mg IV Q4H PRN PRN PRN Reason: SEVERE PAIN (6-10/10) Multivitamins/Minerals ([facility]ivitamin With Minerals) [facility] Nitroglycerin (Nitrostat) 0.4 mg SUBLINGUAL Q5M PRN PRN Reason: CHEST PAIN Ondansetron HCl (Zofran) 4 mg IV Q8H PRN PRN PRN Reason: NAUSEA Oxycodone HCl (Oxyir) 5 mg PO Q4H PRN PRN PRN Reason: SEVERE PAIN (6-10/10) Sodium Chloride () 5 - 15 ml IV UD PRN PRN Reason: SALINE FLUSH Thiamine HCl (Vitamin B1) 100 mg PO BIDCM [facility] Stop: 08/12/18 08:01 Last Admin: 08/09/18 18:47 Dose: 100 mg Medical Necessity - Tobacco Use Smoking Status: Current every day smoker - Currently transition from cigarette tobacco usage approximately 6 months prior to vaping, unclear amount. Tobacco Use: Vapor Assessment/Plan All Active Problems (Last Reviewed 01/28/18 @ 14:03 by Adriana Bhat) Non-STEMI (non-ST elevated myocardial infarction) (Acute) Chest pain (Resolved) The patient is a 57 y/o F w/ PMHx: Tobacco use, EtOH Abuse, CAD s/p PCI x 1, HTN, HLD, Chronic Pain Syndrome s/p prior spinal and peripheral nerve stimulator s/p removal with wires still in place, not following with Chronic Pain Management but using old rx Methadone at reduced dose who presents to the [facility] ED on 08/09/[address] Carvalho office per AX SURVEY WORKER recommendation with EKG changes and intermittent chest pain x 1 month. (1) Chest Pain w/ Acute NSTEMI w/: Work-up in the ED included T 97, heart rate 71, BP 120/86, respiratory rate 16, 96% on 2 L nasal cannula, unremarkable CBC, unremarkable coags, unremarkable BMP, opponent 2.470, EKG with ST depression T wave inversion in leads II, 3, aVF and some mild nonspecific ST depression in V5 and V6 different from prior, chest x-ray with no acute cardiopulmonary findings. Admitted to PCU initially, maintain on a monitored bed, serial cardiac enzymes w/ 2.470->3.20->2.770, magnesium obtained, lovenox therapeutic regimen initially administered. 08/10/[address] Bal w/ noted normal left main coronary artery, LAD with mild disease, left circumflex with mild disease, dominant large RCA previously stented with an area distal to the stent with a 95% stenosis as well as a distal RCA residual 40% stenosis, preserved LVEF. Successful DAYANARA mid RCA performed. Patient transitioned to ICU following. Continued medical management w/ asa, plavix, low dose BB if able to tolerate given low normal BP and HR 60-70 baseline range, statin allergy noted w/ FLP w/ TG 205, TChol 203, LDL 126, VLDL 41, HDL 36. ASA, NG, morphine. (2) CAD: s/p PCI DAYANARA RCA 06/05/2016, maintain on asa, plavix, statin allergy noted, added low dose BB if able to tolerate given low normal BP and HR 60-70 baseline range. (3) EtOH Abuse: Patient notes routine consumption of 4-5, 12 ounce beers majority of the weekdays. Discussed appropriate alcoholic intake and female. Will maintain on CIWA protocol, MVI, thiamine and folic acid. Mag and phos normal. (4) Tobacco Abuse: Encouraged cessation including of vapor products, inpatient consultation per RT, NR if desired for currently deferred given acute presentation which was discussed and amenable per patient. (5) Chronic pain syndrome, RDS: Prior spinal and peripheral stimulators, devices have been removed, wires remain, not following with chronic pain management however she is continuing to take oral methadone and oral narcotic therapies which are her prior scripts at a reduced dose to make these last. UDS w/ + methadone only. Continue to avoid withdrawal and have PRN agents above this given acute presentation. (6) Hypertension: BP not elevated upon ED presentation, not on regimen, added low-dose beta-devin given acute presentation if able to tolerate given low normal BP and HR 60-70 baseline range, PRN hydralazine. (7) Hyperlipidemia: Statin allergy noted. FLP w/ TG 205, TChol 203, LDL 126, VLDL 41, HDL 36. (8) DVT Prophylaxis: SCDs, transition to chemoprophylaxis dosing lovenox only. Code Visit Inpatient E&M: 69614 Subs Hosp L3
--- NOTE | 2018-08-10 08:08 | PN.CARD_ITS ---
Subjectve: Patient seen and evaluated. Objective: Vital Signs Temp Pulse Resp BP Pulse Ox 98.4 F 69 18 99/59 L 98 08/10/18 05:21 08/10/18 06:59 08/10/18 05:21 08/10/18 05:21 08/10/18 05:21 Oxygen Flow Rate (L/min) 2 Oxygen Delivery Method Nasal Cannula Weight: 158 lb 15.253 oz Body Mass Index (BMI) 24.9 Intake and Output for Last 24 Hours 08/08/18 08/09/18 08/10/18 23:59 23:59 23:59 Intake Total 1588 / 1588 730 / 730 Balance 1588 / 1588 730 / 730 General: Awake, Alert, Oriented x 3 HEENT: PERRL, EOMI, Sclera Non Icteric Neck: Supple, Good ROM, No Lymph Node Enlargement Lungs: Clear to auscultation Cardiovascular: Regular Rhythm, Normal S1, Normal S2, No Murmurs, No Rubs, No Gallops Vascular: No Carotid Bruits, Normal Femoral Pulses, Normal Radial Pulses, Normal Dorsalis Pedal Pulse, Normal Posterior Tibial Pulses Abdomen: Bowel Sounds Present, Soft, Non Tender, No HSM, No Organomegaly Extremities: No Cyanosis, No Clubbing, No edema Musculoskeletal: No Erythema Skin: No Rashes Lymphatic: No Lymph Node Enlargement Neurological: No Focal Motor or Sensory Deficit Psych/Mental Status: Appropriate 08/09/18 12:08: WBC 6.3, RBC 5.15, Hgb 14.6, Hct 45.7, MCV 88.7, MCH 28.3, MCHC 31.9 L, RDW 13.1, RDW Differential 42.2, Plt Count 256, MPV 9.9, Immature Gran % (Auto) 0.000, Neut % (Auto) 62.6, Lymph % (Auto) 29.9, [place] % (Auto) 5.6, Eos % (Auto) 1.7, Baso % (Auto) 0.2, Absolute Neuts (auto) 3.9, Total Counted Not Reportable 08/09/18 12:08: Sodium 140, Potassium 4.1, Chloride 104, Carbon Dioxide 30.0, Anion Gap 6, BUN 15, Creatinine 0.98, Est GFR (MDRD) Af Amer 75, Est GFR (MDRD) Non-Af 62, BUN/Creatinine Ratio 15.3, Glucose 91, Calcium 9.3, Troponin I 2.470 H* 08/09/18 15:05: PT 13.5, INR 1.1, APTT 34.2 08/09/18 15:05: Phosphorus 4.0, Magnesium 2.2 08/09/18 15:05: Troponin I 3.200 H* 08/09/18 18:20: Troponin I 2.770 H* 08/09/18 18:30: Urine Color Yellow, Urine Clarity Clear, Urine pH 5.0, Ur Specific [place] 1.020, Urine Protein Negative, Urine Glucose (UA) Normal, Urine Ketones 5 H, Urine Occult Blood Negative, Urine Nitrite Negative, Urine Bilirubin Negative, Urine Urobilinogen Normal, Ur Leukocyte Esterase Negative, Urine RBC 0 SEEN, Urine WBC 0 SEEN 08/10/18 04:28: WBC 5.0, RBC 4.26, Hgb 12.3, Hct 38.2, MCV 89.7, MCH 28.9, MCHC 32.2, RDW 12.5, RDW Differential 40.6, Plt Count 194, MPV 10.1 08/10/18 04:28: Sodium 144, Potassium 3.9, Chloride 111 H, Carbon Dioxide 26.0, Anion Gap 7, BUN 15, Creatinine 0.78, Est GFR (MDRD) Af Amer 97, Est GFR (MDRD) Non-Af 80, BUN/Creatinine Ratio 19.3, Glucose 122 H, Calcium 7.8 L, Total Bilirubin 0.20, Triglycerides 205 H, Cholesterol 203 H, LDL Cholesterol 126, VLDL Cholesterol 41 H, HDL Cholesterol 36 L 08/10/18 04:28: PT 13.7, INR 1.1, APTT 28.6 Rhythm: EKG: ECHO: Stress Test: Cardiac Cath: PCI: CT Surgery: Holter monitor: EPS: PPM: CXR: Chest CT Scan: Medical Necessity - Tobacco Use Smoking Status: Current every day smoker - Currently transition from cigarette tobacco usage approximately 6 months prior to vaping, unclear amount. Tobacco Use: Vapor Assessment/Plan 1. Non-ST elevation myocardial infarction * Patient presents with chest discomfort and is noted to have a non-ST elevation myocardial infarction. * Recommendation will be to continue with aspirin * Continue with the beta-devin * Discontinue tobacco use * Continue clopidogrel * Cardiac catheterization demonstrated the following: Normal left main coronary artery. Left anterior descending artery with mild disease. Left circumflex artery with mild disease. Dominant large right coronary artery previously stented with an area just distal to the stent with a 95% stenosis. Distal right coronary artery has a residual 40% stenosis. Preserved left ventricular ejection fraction. Based on the above radiographic findings the patient will be considered for angioplasty of the right coronary artery * 2. Hypertension * Blood pressure is under good control will continue current medical therapy * 3. Factor modification * Will seriously consider risk factor modification with reduction in tobacco use, a more appropriate diet as well as adherence to medications and follow-up * * Thank you for allowing me to participate in the care of your patient. Please don't hesitate to call if any issues arise
--- NOTE | 2018-08-10 08:49 | NURSING ---
report called to icu [facility]
[2018-08-10] MEDS: 0.9% Normal Saline 1,000 ML 125 ML IV (09:15)
--- NOTE | 2018-08-10 09:45 | CL.D_ITS ---
Patient Name: SPIKE TARIQ Study Date: 08/10/2018 Performing: Dangelo Bal MD Ht: 66.93 inches 170 cm : 1960 Wt: 158.73 lbs 72 kg Age: 57 Gender: female BSA: 1.83 PROCEDURE(S) PERFORMED FZ25-PGD/COR/LV [id number] W OR WO PTCA, SINGLE CORONARY ARTERY CLINICAL PROFILE AND INDICATIONS Indications: Worsening Angina Heart Failure: None Stress/Imaging Stress/Image Study Performed: No CAD Presentations: Non-STEMI. Symptom onset Date/Time: 08/09/2018 Time Estimated CONCLUSIONS High-grade right coronary artery with a stenosis distal to the previously placed stent. Mild disease noted in the distal right coronary artery and left system. RECOMMENDATIONS Referred for immediate PCI DESCRIPTION OF PROCEDURE The patient arrived to the procedure lab. The risks and benefits of the procedure as well as a full d escription of our services here and current unavailability of surgical backup were fully explained to the patient and/or their significant other prior to the catheterization. The Timeout was completed, verifying the correct patient and procedure. The patient's procedural site was prepped and draped in the usual fashion. Local anesthetic was given subcutaneously to right radial region with Lidocaine 2% . Using a modified Seldinger technique, arterial access was obtained via the right radial artery, a 6 Fr sheath was inserted. Left Coronary Artery selective angiography was performed in multiple views u sing a 5 Fr. 4.0 [place] catheter. Right Coronary Artery selective angiography was then performed in mu ltiple views using a 5 Fr. 4.0 [place] catheter. Left Ventriculography was performed in COLLIER projection using a 5 Fr. Pigtail catheter. LV to AO pullback pressures were then recorded.The arterial sheath was pulled and a TR Band was applied for hemostasis CORONARY ANGIOGRAPHY DOMINANCE: Right Dominant LEFT HEART ASSESSMENT Left Ventricular Ejection Fraction: by LV Gram 60 % Normal LV wall motion Normal Left Ventricular systolic function LEFT MAIN: Angiographically normal LEFT ANTERIOR DECENDING ARTERY: Mild luminal irregularities less than 30% CIRCUMFLEX ARTERY: Mild luminal irregularities less than 30% RIGHT CORONARY ARTERY: MID RCA: Previously placed stent is patent, 90 post stent area % Stenosis DISTAL RCA: Moderate luminal irregularities up to 50% COMPLICATIONS No Complications PROCEDURE MEDICATIONS Versed 1 mg IV Versed 1 mg IV Oxygen: 2 L/min via nasal cannula Angiomax 10.5 ml bolus 08/10/2018 08:23:10 Angiomax 24.5 ml/hr @ 08/10/2018 08:23:28 Nitro 300 mcg IC 08/10/2018 08:34:07 IV Fluids: .9 NaCl increased to WO 1000ml 08/10/2018 07:35:30 IV Fluids: .9 NaCl decreased to 150 ml/hr 08/10/2018 08:15:47 SUMMARY OF HEMODYNAMIC DATA Time AIR REST ECG 07:14:34 AO 102/53 (74) SA 07:44:15 LV 100/4, 14 07:51:19 LV 104/4, 15 07:51:25 LV 94/3, 15 07:53:27 LV 99/5, 17 07:53:34 LVp 102/5, 16 07:53:38 AOp 103/56 (76) 07:53:43 Signed By Dangelo Bal MD On 08/10/2018 10:56:43 Signed By Dangleo Bal MD On 08/10/2018 09:45:05 Dangelo Bal MD
--- NOTE | 2018-08-10 10:20 | CRPHASE1 ---
Patient Communication Former Patient:: Phase II - 2017 PHII Cardiac Rehab Discussed with Patient:: Yes Guide to Cardiac Rehab Given to Patient:: Yes Cardiac Rehab Facility Choice List Given to Patient:: Yes Choice Program [facility] PHII:: Communication Given to CR, Refer to [facility] Field Professional:: Domenico Carvalho PCP:: Rosalind Jama Refer Phase II Cardiac Rehab:: Yes Phase I Charge:: Level I - Education Risk Factors/Lifestyle Smoking Status: Current every day smoker - VAPS Hx Hypertension: Yes - H & P PT DENIES AT PRESENT Hx Diabetes Mellitus Type 1: No Hx Diabetes Mellitus Type 2: No Hx Dyslipidemia: Yes Height: 5 ft 7 in Weight:: 159 lb BMI: 24.9 Stress: Recent, Long-standing ETOH: Yes Risk Factor for Sedentary Lifestyle: Highest Risk Family History: Family History (Last Updated 08/09/18 @ 11:17 by Penny Valle) Father CAD (coronary artery disease) Mother Diabetes Hypertension Thyroid disorder Past Cardiac Illness: Coronary Artery Disease, Myocardial Infarction, Previous PCI w/Stent Laboratory Values: Cardiac Rehab Phase I Labs Triglycerides 205 mg/dL (-199) H 08/10/18 04:28 Cholesterol 203 mg/dL (200) H 08/10/18 04:28 LDL Cholesterol 126 mg/dL (0-130) 08/10/18 04:28 HDL Cholesterol 36 mg/dL (40-) L 08/10/18 04:28 Phase I Education Given On:: [place], Nutrition, Antiplatelet medication, CHF, Smoking cessation, Diabetes - Type I, Diabetes - Type II Issues Affecting Care:: None Knowledge of Condition:: Yes Hospital Course Pain Description: Burning, Aching, Pressure Medical/Surgical History CAD:: Yes Cardiomyopathy:: No Valve Disease/Replacement:: No COPD:: Yes Asthma:: No Diabetes:: No Hypertension:: Yes - PT DENIES Dyslipidemia:: Yes Arrhythmias:: No PE:: No DVT:: No Arthritis:: No GERD:: No Cancer:: No Renal:: No Thyroid:: No Depression:: Yes Anxiety:: Yes PTCA:: Yes - 06/05/2016 ICD:: No Pacemaker:: No Discharge/Home/Social Eval Discharge Disposition: Home Cardiac Rehabilitation Info Cardiac Rehabilitation Program Information: Cardiac Rehabilitation is important for patients like you who are recovering from a heart problem. Cardiac rehabilitation programs are recognized as integral to the continued care of the patient with coronary heart disease. The cardiac rehabilitation program is designed to optimize a patient's physical, psychological, and social functioning. Health home care physical therapist work in cardiac rehabilitation programs and assist you with getting the treatments you need to get stronger and healthier - like exercise, healthy eating habits, and medications. Cardiac rehabilitation has been show to help people with heart problems live longer and have better life enjoyment than people who do not go to cardiac rehabilitation. Please contact the Cardiac Rehabilitation Program at [facility] at in two weeks if you have not heard from them.
--- NOTE | 2018-08-10 10:25 | CRPHASE1_ITS ---
Addendum entered and electronically signed by Gerber Landon CRT, FELT HAT MELLOWING MACHINE OPERATOR, BS 08/24/18 14:39: Patient was referred to CR Phase II prior to her discharge following her recent PCI intervention. The patient has previously participated in CR in the recent past. Original Note: Patient Communication Former Patient:: Phase II - 2017 PHII Cardiac Rehab Discussed with Patient:: Yes Guide to Cardiac Rehab Given to Patient:: Yes Cardiac Rehab Facility Choice List Given to Patient:: Yes Choice Program [facility] CR PHII:: Communication Given to CR, Refer to [facility] Knot Cutter:: Domenico Carvalho PCP:: Rosalind Jama Refer Phase II Cardiac Rehab:: Yes Phase I Charge:: Level I - Education Risk Factors/Lifestyle Smoking Status: Current every day smoker - VAPS Hx Hypertension: Yes - H & P PT DENIES AT PRESENT Hx Diabetes Mellitus Type 1: No Hx Diabetes Mellitus Type 2: No Hx Dyslipidemia: Yes Height: 5 ft 7 in Weight:: 159 lb BMI: 24.9 Stress: Recent, Long-standing ETOH: Yes Risk Factor for Sedentary Lifestyle: Highest Risk Family History: Family History (Last Updated 08/09/18 @ 11:17 by Penny Valle) Father CAD (coronary artery disease) Mother Diabetes Hypertension Thyroid disorder Past Cardiac Illness: Coronary Artery Disease, Myocardial Infarction, Previous PCI w/Stent Laboratory Values: Cardiac Rehab Phase I Labs Triglycerides 205 mg/dL (-199) H 08/10/18 04:28 Cholesterol 203 mg/dL (200) H 08/10/18 04:28 LDL Cholesterol 126 mg/dL (0-130) 08/10/18 04:28 HDL Cholesterol 36 mg/dL (40-) L 08/10/18 04:28 Phase I Education Given On:: [place], Nutrition, Antiplatelet medication, CHF, Smoking cessation, Diabetes - Type I, Diabetes - Type II Issues Affecting Care:: None Knowledge of Condition:: Yes Hospital Course Pain Description: Burning, Aching, Pressure Medical/Surgical History CAD:: Yes Cardiomyopathy:: No Valve Disease/Replacement:: No COPD:: Yes Asthma:: No Diabetes:: No Hypertension:: Yes - PT DENIES Dyslipidemia:: Yes Arrhythmias:: No PE:: No DVT:: No Arthritis:: No GERD:: No Cancer:: No Renal:: No Thyroid:: No Depression:: Yes Anxiety:: Yes PTCA:: Yes - 06/05/2016 ICD:: No Pacemaker:: No Discharge/Home/Social Eval Discharge Disposition: Home Cardiac Rehabilitation Info Cardiac Rehabilitation Program Information: Cardiac Rehabilitation is important for patients like you who are recovering from a heart problem. Cardiac rehabilitation programs are recognized as integral to the continued care of the patient with coronary heart disease. The cardiac rehabilitation program is designed to optimize a patient's physical, psychological, and social functioning. Health respite care provider work in cardiac rehabilitation programs and assist you with getting the treatments you need to get stronger and healthier - like exercise, healthy eating habits, and medications. Cardiac rehabilitation has been show to help people with heart problems live longer and have better life enjoyment than people who do not go to cardiac rehabilitation. Please contact the Cardiac Rehabilitation Program at [facility] at in two weeks if you have not heard from them.
--- NOTE | 2018-08-10 10:32 | CRPH1.INSTRU ---
General Education CAD and cardiac anatomy and function:: Not instructed Explanation of diagnoses and procedures:: Not instructed Sign/Symptoms of [place]:: Not instructed Antiplatelet therapy: Patient communicates acknowledgment, Needs reinforcement Proper use of NTG-SL: Needs reinforcement Emergency procedures and activation of EMS: Patient communicates acknowledgment Compliance of all prescribed medications: Patient communicates acknowledgment Smoking Patient Nicotine/Smoking Risk Factors Are:: Cigarettes - PT 'VAPS Recommendations Include:: Participation in a smoking cessation program Nicotine/Smoking Response Code:: Needs reinforcement Dyslipidemia Recommendations Include:: Lipid profile not available Dyslipidemia Response Code:: Not instructed Overweight/Obesity Patient Overweight/Obesity Risk Factors Are:: BMI Normal [18-25 & < 65 years old] Overweight/Obesity:: Not instructed Hypertension Hypertension:: Not instructed - PT DENIES HAVING HYPERTENSION OR PREVIOUS USE OF MEDICATION FOR B/P Heart Disease Patient Heart Disease Risk Factors Are:: Family history of heart disease < 65 years old Heart Disease Response Code:: Needs reinforcement Diabetes Patient Diabetes Risk Factors Are:: No documented hx of diabetes Metabolic Syndrome Metabolic Syndrome Response Code:: Not instructed Sedentary Sedentary Response Code:: Needs reinforcement Stress Stress Response Code:: Patient communicates acknowledgment, Needs reinforcement
--- NOTE | 2018-08-10 10:35 | CRPH1.INST_ITS ---
General Education CAD and cardiac anatomy and function:: Not instructed Explanation of diagnoses and procedures:: Not instructed Sign/Symptoms of [place]:: Not instructed Antiplatelet therapy: Patient communicates acknowledgment, Needs reinforcement Proper use of NTG-SL: Needs reinforcement Emergency procedures and activation of EMS: Patient communicates acknowledgment Compliance of all prescribed medications: Patient communicates acknowledgment Smoking Patient Nicotine/Smoking Risk Factors Are:: Cigarettes - PT 'VAPS Recommendations Include:: Participation in a smoking cessation program Nicotine/Smoking Response Code:: Needs reinforcement Dyslipidemia Recommendations Include:: Lipid profile not available Dyslipidemia Response Code:: Not instructed Overweight/Obesity Patient Overweight/Obesity Risk Factors Are:: BMI Normal [18-25 & < 65 years old] Overweight/Obesity:: Not instructed Hypertension Hypertension:: Not instructed - PT DENIES HAVING HYPERTENSION OR PREVIOUS USE OF MEDICATION FOR B/P Heart Disease Patient Heart Disease Risk Factors Are:: Family history of heart disease < 65 years old Heart Disease Response Code:: Needs reinforcement Diabetes Patient Diabetes Risk Factors Are:: No documented hx of diabetes Metabolic Syndrome Metabolic Syndrome Response Code:: Not instructed Sedentary Sedentary Response Code:: Needs reinforcement Stress Stress Response Code:: Patient communicates acknowledgment, Needs reinforcement
[2018-08-10] MEDS: Thiamine Hydrochloride 100 MG Tablet PO ×2 (11:20→16:18)
[2018-08-10] MEDS: Multivitamins,Ther W-Minerals Tablet 1 TABLET PO (11:20)
[2018-08-10] MEDS: Folic Acid 1 MG Tablet PO (11:20)
[2018-08-10] MEDS: Carvedilol 3.125 MG TABLET PO (11:21)
[2018-08-10] MEDS: DULoxetine Hcl 60 MG Capsule PO (11:21)
--- NOTE | 2018-08-10 13:10 | CL.I_ITS ---
Patient Name: SPIKE TARIQ Study Date: 08/10/2018 Performing: Reilly Gil MD Ht: 66.93 inches 170 cm : 1960 Wt: 158.73 lbs 72 kg Age: 57 Gender: female BSA: 1.83 PROCEDURE(S) PERFORMED [id number] W OR WO PTCA, SINGLE CORONARY ARTERY CLINICAL PROFILE AND CO-MORBIDITIES Indications: Worsening Angina Heart Failure: None Stress/Imaging Stress/Image Study Performed: No CAD Presentations: Non-STEMI. Symptom onset Date/Time: 08/09/2018 Time Estimated CONCLUSIONS Successful DAYANARA of the mid RCA RECOMMENDATIONS Highly recommend quitting all tobacco products Follow up with primary peer tutor Risk factor modification ASA Indefinitley Plavix for at least 12 months Routine post interventional care Refer for Outpatient Cardiac Rehab Manual sheath removal per protocol DESCRIPTION OF PROCEDURE The patient arrived to the procedure lab. The risks and benefits of the procedure as well as a full d escription of our services here and current unavailability of surgical backup were fully explained to the patient and/or their significant other prior to the catheterization. The Timeout was completed, verifying the correct patient and procedure. The patient's procedural site was prepped and draped in the usual fashion. Local anesthetic was given subcutaneously to right radial region with Lidocaine 2% Using a modified Seldinger technique,arterial access was obtained via the right radial artery, a 6Fr sheath was inserted. Left Coronary Artery selective angiography was performed in multiple views usin g a 5 Fr. 4.0 [place] catheter. Right Coronary Artery selective angiography was then performed in multi ple views using a 5 Fr. 4.0 [place] catheter. Left Ventriculography was performed in COLLIER projection usi ng a 5 Fr. Pigtail catheter. LV to AO pullback pressures were then recorded.The images were reviewed and options discussed. A decision was then made to proceed with an Intervention, IVUS o r other adjunct procedure. HS I Guide catheter was inserted and engaged into the RCA. [employer] [place] Guide wire was advanced to the RCA. Synergy 4.0 x 16 Drug Eluting stent was inserted. Drug Eluting stent was advanced across the lesion in the right coronary, mid. Angiogram performed post stent deployment. The arterial dorman th was pulled and a TR Band was applied for hemostasis INTERVENTION INFORMATION LESION SITE: RCA (Mid) Lesion Complexity: Non-High/Non-C, chronic total occlusion: No, lesion at bifurcation: No, thrombus p resent: No, lesion length: 10 mm, culprit lesion: Yes Pre Stenosis: 90 % Pre intervention GANESH flow: 3 PROCEDURE: Drug Eluting Stent Post Stenosis: 0 % Post intervention GANESH flow: 3 Lesion Devices: Medtronic 6 Fr HS1 100cm Guide Catheter Reilly .014 [employer] [place] Straight 190cm Ronnie [employer] Synergy MR DAYANARA [id number] COMPLICATIONS No Complications PROCEDURE MEDICATIONS Versed 1 mg IV Versed 1 mg IV Oxygen: 2 L/min via nasal cannula Angiomax 10.5 ml bolus 08/10/2018 08:23:10 Angiomax 24.5 ml/hr @ 08/10/2018 08:23:28 Nitro 300 mcg IC 08/10/2018 08:34:07 IV Fluids: .9 NaCl increased to WO 1000ml 08/10/2018 07:35:30 IV Fluids: .9 NaCl decreased to 150 ml/hr 08/10/2018 08:15:47 SUMMARY OF HEMODYNAMIC DATA Time AIR REST ECG 07:14:34 AO 102/53 (74) SA 07:44:15 LV 100/4, 14 07:51:19 LV 104/4, 15 07:51:25 LV 94/3, 15 07:53:27 LV 99/5, 17 07:53:34 LVp 102/5, 16 07:53:38 AOp 103/56 (76) 07:53:43 Signed By Reilly Gil MD On 08/10/2018 13:09:05 Reilly Gil MD
[2018-08-10] MEDS: 0.9% Normal Saline 1,000 ML 100 ML IV (16:14)
[2018-08-11] VITALS (13 sets, daily range): BP systolic 93–129; BP diastolic 53–81; PULSE 55–81; RESP 12–25; TEMP 36.8–37; O2SAT 92–98
[2018-08-11] MEDS: 0.9% Normal Saline 1,000 ML 100 ML IV (02:10)
[2018-08-11] MEDS: 0.9% NaCl Peripheral Flush Adult/Peds IV (04:23)
[2018-08-11 04:48] LABS: Hematocrit 36.4 % (37-47); Hemoglobin 11.4 g/dl (12.0-15.0); Mean Corp Hgb Conc 31.3 g/gl (32-36); Mean Corpuscular Hgb 28.5 pg (27.0-32.0); Mean Platelet Vol. 10.4 fl (6.2-12.0); Platelet Count 178 K/mm3 (150-450); RBC Distribution Width CV 12.8 % (11.6-14.6); RBC Distribution Width SD 41.8 fl (35.1-43.9); Scan Indicated on CBC? Y/N NO
[2018-08-11 04:49] LABS: Anion Gap 4 (5-15); BUN 16 mg/dL (7-18); BUN/Creat Ratio 19.5 RATIO (10-20); Calcium,Total 8.1 mg/dL (8.5-10.1); Chloride 113 mmol/L (98-107); Creatinine, Serum 0.82 mg/dL (0.55-1.02); EST Glomerular Filtration Rate 76 mL/min (>60); Est Glom Filt Rate - Afr Amer 92 mL/min (>60); Estimated Creatinine Clearance 71.84 ml/min; Glucose 108 mg/dL (74-106); Potassium 4.2 mmol/L (3.5-5.1); Sodium Level 144 mmol/L (136-145)
[2018-08-11] MEDS: Enoxaparin 40 MG/0.4 ML Syringe SC (06:23)
--- NOTE | 2018-08-11 06:35 | PCM.PN.HOSP ---
Patient Problems: Active and Suspected Problems (Last Reviewed 01/28/18 @ 14:03 by Adriana Bhat) Non-STEMI (non-ST elevated myocardial infarction) (Acute) Subjective: Patient with no acute events overnight per self and per nursing report. Patient denies any further episodes of chest discomfort, dyspnea, nausea, emesis. Patient right wrist with no evidence of oozing. Patient evaluated by cardiology this morning and cleared for discharge to home. Discussed nicotine tobacco cessation importance as well as appropriate levels of alcoholic intake. Objective: Physical Examination: General: awake, alert, oriented x 3 and cooperative, seated upright in the ICU bed, doing well, no further chest discomfort. Skin: normal color, turgor, no icterus, cyanosis, R wrist well-appearing. HEENT: AT/NC, EOMI, PERRLA, MMM. Lungs: Diminished BS BL bases, moderate effort, no rales, ronchi or wheezing to anterior and side. Heart: Regular rate and rhythm; no gallop, rub audible. Abdomen: soft, NTTP, ND, normal BS. Extremities: no cyanosis, clubbing, or edema, R wrist well-appearing s/p recent cardiac catheterization. Neurological: patient awake, alert, oriented x 3; cognitive function intact; pupils equally reactive to light and accomodation; cranial nerves II-XII grossly normal, moving all 4 extremities, no focal deficits, strength proved, preserved. Psychiatric: affect appears normal, no acute evidence of depressive or anxiety feelings. Vitals/I&O's: Vital Signs Temp Pulse Resp BP Pulse Ox 98.6 F 60 25 H 129/63 H 96 08/11/18 04:00 08/11/18 06:00 08/11/18 06:00 08/11/18 06:00 08/11/18 06:00 Oxygen Flow Rate (L/min) 2 Oxygen Delivery Method Room Air Weight: 159 lb 13.362 oz Body Mass Index (BMI) 24.9 Intake and Output for Last 24 Hours 08/09/18 08/10/18 08/11/18 23:59 23:59 23:59 Intake Total 1588 / 1588 3175 / 3175 864 / 864 Output Total 0 / 0 Balance 1588 / 1588 3175 / 3175 864 / 864 Laboratory Results 08/11/18 04:20: WBC 6.0, RBC 4.00 L, Hgb 11.4 L, Hct 36.4 L, MCV 91.0, MCH 28.5, MCHC 31.3 L, RDW 12.8, RDW Differential 41.8, Plt Count 178, MPV 10.4 08/11/18 04:20: Sodium 144, Potassium 4.2, Chloride 113 H, Carbon Dioxide 27.0, Anion Gap 4 L, BUN 16, Creatinine 0.82, Estim Creat Clear Calc 71.84, Est GFR (MDRD) Af Amer 92, Est GFR (MDRD) Non-Af 76, BUN/Creatinine Ratio 19.5, Glucose 108 H, Calcium 8.1 L Current Medications Al Hydroxide/Mg Hydroxide (Mylanta Ii) 30 ml PO Q6H PRN PRN PRN Reason: Gastric burning Aspirin (Aspirin, Baby) 81 mg PO DAILY@0800 [facility] Last Admin: 08/10/18 05:10 Dose: 81 mg Atropine Sulfate () 0.5 mg IV UD PRN PRN Reason: HR <50 bpm Cholecalciferol (Vitamin D) 1,000 unit PO DAILY [facility] Last Admin: 08/10/18 11:22 Dose: 1,000 unit Clopidogrel Bisulfate (Plavix) 75 mg PO DAILY [facility] Last Admin: 08/10/18 05:10 Dose: 75 mg Duloxetine HCl (Cymbalta) 60 mg PO DAILY [facility] Last Admin: 08/10/18 11:21 Dose: 60 mg Enoxaparin Sodium (Lovenox) 40 mg SC DAILY@0600 [facility] Last Admin: 08/11/18 06:23 Dose: 40 mg Famotidine (Pepcid) 20 mg PO BID [facility] Last Admin: 08/10/18 21:06 Dose: 20 mg Folic Acid (Folic Acid) 1 mg PO DAILY@0800 [facility] Stop: 08/12/18 08:01 Last Admin: 08/10/18 11:20 Dose: 1 mg Heparin Sodium (Beef Lung) (Heparin 500 Unit/5 Ml (100/Ml)) 500 unit IV UD PRN PRN Reason: HEPARIN FLUSH Hydralazine HCl (Apresoline Iv) 10 mg IV Q4H PRN PRN PRN Reason: SBP > 160 Sodium Chloride () 1,000 mls @ 15 mls/hr IV .Q48H [facility] Last Admin: 08/10/18 07:41 Dose: Not Given Sodium Chloride () 1,000 mls @ 100 mls/hr IV .Q10H [facility] Last Admin: 08/11/18 02:10 Dose: 100 mls/hr Lorazepam (Ativan) 2 mg PO Q2H PRN PRN; Protocol PRN Reason: CIWA score > 8 but <15 Lorazepam (Ativan) 2 mg IV Q2H PRN PRN; Protocol PRN Reason: CIWA score > 8 but <15 Lorazepam (Ativan) 2 mg PO UD PRN; Protocol PRN Reason: CIWA score >/=15. Lorazepam (Ativan) 2 mg IV UD PRN; Protocol PRN Reason: CIWA score >/=15. Magnesium Hydroxide (Milk Of Magnesia) 30 ml PO DAILY PRN PRN Reason: Constipation Methadone HCl () 2.5 mg PO DAILY [facility] Last Admin: 08/10/18 11:21 Dose: 2.5 mg Morphine Sulfate () 2 mg IV Q4H PRN PRN PRN Reason: SEVERE PAIN (6-10/10) Multivitamins/Minerals ([facility] Minerals) [facility] Admin: 08/10/18 11:20 Dose: 1 tablet Nitroglycerin (Nitrostat) 0.4 mg SUBLINGUAL Q5M PRN PRN Reason: CHEST PAIN Ondansetron HCl (Zofran) 4 mg IV Q8H PRN PRN PRN Reason: NAUSEA Oxycodone HCl (Oxyir) 5 mg PO Q4H PRN PRN PRN Reason: SEVERE PAIN (6-10/10) Sodium Chloride () 5 - 15 ml IV UD PRN PRN Reason: SALINE FLUSH Last Admin: 08/11/18 04:23 Dose: 10 ml Sodium Chloride () 500 ml IV BOLUS PRN PRN Reason: VASO-VAGAL PROTOCOL Thiamine HCl (Vitamin B1) [facility] Stop: 08/12/18 08:01 Last Admin: 08/10/18 16:18 Dose: 100 mg Medical Necessity - Tobacco Use Smoking Status: Current every day smoker - Currently transition from cigarette tobacco usage approximately 6 months prior to vaping, unclear amount. Tobacco Use: Vapor Assessment/Plan All Active Problems (Last Reviewed 01/28/18 @ 14:03 by Adriana Bhat) Non-STEMI (non-ST elevated myocardial infarction) (Acute) Chest pain (Resolved) The patient is a 57 y/o F w/ PMHx: Tobacco use, EtOH Abuse, CAD s/p PCI x 1, HTN, HLD, Chronic Pain Syndrome s/p prior spinal and peripheral nerve stimulator s/p removal with wires still in place, not following with Chronic Pain Management but using old rx Methadone at reduced dose who presents to the [facility] ED on 08/09/[address] Carvalho office per [employer] recommendation with EKG changes and intermittent chest pain x 1 month. (1) Chest Pain w/ Acute NSTEMI w/: Work-up in the ED included T 97, heart rate 71, BP 120/86, respiratory rate 16, 96% on 2 L nasal cannula, unremarkable CBC, unremarkable coags, unremarkable BMP, opponent 2.470, EKG with ST depression T wave inversion in leads II, 3, aVF and some mild nonspecific ST depression in V5 and V6 different from prior, chest x-ray with no acute cardiopulmonary findings. Admitted to PCU initially, maintain on a monitored bed, serial cardiac enzymes w/ 2.470->3.20->2.770, magnesium obtained, lovenox therapeutic regimen initially administered. 08/10/[address] Bal w/ noted normal left main coronary artery, LAD with mild disease, left circumflex with mild disease, dominant large RCA previously stented with an area distal to the stent with a 95% stenosis as well as a distal RCA residual 40% stenosis, preserved LVEF. Successful DAYANARA mid RCA performed. Continued medical management w/ asa, plavix, low dose BB if able to tolerate given low normal BP and HR 60-70 baseline range, statin allergy noted w/ FLP w/ TG 205, TChol 203, LDL 126, VLDL 41, HDL 36. ASA, NG, morphine. Patient evaluated per cardiology this morning and cleared for discharge to home. Advised patient strongly on nicotine cessation as well as appropriate alcohol intake. (2) CAD: s/p PCI DAYANARA RCA 06/05/2016, maintain on asa, plavix, statin allergy noted, added low dose BB if able to tolerate given low normal BP and HR 60-70 baseline range. (3) EtOH Abuse: Patient notes routine consumption of 4-5, 12 ounce beers majority of the weekdays. Discussed appropriate alcoholic intake and female. Will maintain on CIWA protocol, MVI, thiamine and folic acid. Mag and phos normal. (4) Tobacco Abuse: Encouraged cessation including of vapor products, inpatient consultation per RT, NR if desired for currently deferred given acute presentation which was discussed and amenable per patient. (5) Chronic pain syndrome, RDS: Prior spinal and peripheral stimulators, devices have been removed, wires remain, not following with chronic pain management however she is continuing to take oral methadone and oral narcotic therapies which are her prior scripts at a reduced dose to make these last. UDS w/ + methadone only. Continue to avoid withdrawal and have PRN agents above this given acute presentation. (6) Hypertension: BP not elevated upon ED presentation, not on regimen, added low-dose beta-devin given acute presentation if able to tolerate given low normal BP and HR 60-70 baseline range, PRN hydralazine. Did advise patient that if she felt lightheaded or had low blood pressures with Coreg intake to notify her weight tester with consideration of decreasing dose to once daily only. (7) Hyperlipidemia: Statin allergy noted. FLP w/ TG 205, TChol 203, LDL 126, VLDL 41, HDL 36. (8) DVT Prophylaxis: SCDs, lovenox.
--- NOTE | 2018-08-11 07:22 | PN.CARD_ITS ---
Subjectve: Patient seen and evaluated. Appears to be doing well. No chest discomfort overnight. Objective: Vital Signs Temp Pulse Resp BP Pulse Ox 98.6 F 60 25 H 129/63 H 96 08/11/18 04:00 08/11/18 06:00 08/11/18 06:00 08/11/18 06:00 08/11/18 06:00 Oxygen Flow Rate (L/min) 2 Oxygen Delivery Method Room Air Weight: 159 lb 13.362 oz Body Mass Index (BMI) 24.9 Intake and Output for Last 24 Hours 08/09/18 08/10/18 08/11/18 23:59 23:59 23:59 Intake Total 1588 / 1588 3175 / 3175 864 / 864 Output Total 0 / 0 Balance 1588 / 1588 3175 / 3175 864 / 864 General: Awake, Alert, Oriented x 3 HEENT: PERRL, EOMI, Sclera Non Icteric Neck: Supple, Good ROM, No Lymph Node Enlargement Lungs: Clear to auscultation Cardiovascular: Regular Rhythm, Normal S1, Normal S2, No Murmurs, No Rubs, No Gallops Vascular: No Carotid Bruits, Normal Femoral Pulses, Normal Radial Pulses, Normal Dorsalis Pedal Pulse, Normal Posterior Tibial Pulses Abdomen: Bowel Sounds Present, Soft, Non Tender, No HSM, No Organomegaly Extremities: No Cyanosis, No Clubbing, No edema Neurological: No Focal Motor or Sensory Deficit Psych/Mental Status: Appropriate 08/11/18 04:20: WBC 6.0, RBC 4.00 L, Hgb 11.4 L, Hct 36.4 L, MCV 91.0, MCH 28.5, MCHC 31.3 L, RDW 12.8, RDW Differential 41.8, Plt Count 178, MPV 10.4 08/11/18 04:20: Sodium 144, Potassium 4.2, Chloride 113 H, Carbon Dioxide 27.0, Anion Gap 4 L, BUN 16, Creatinine 0.82, Est GFR (MDRD) Af Amer 92, Est GFR (MDRD) Non-Af 76, BUN/Creatinine Ratio 19.5, Glucose 108 H, Calcium 8.1 L Rhythm: EKG: ECHO: Stress Test: Cardiac Cath: PCI: CT Surgery: Holter monitor: EPS: PPM: CXR: Chest CT Scan: Medical Necessity - Tobacco Use Smoking Status: Current every day smoker - Currently transition from cigarette tobacco usage approximately 6 months prior to vaping, unclear amount. Tobacco Use: Vapor Assessment/Plan 1. Non-ST elevation myocardial infarction * Patient presents with chest discomfort and is noted to have a non-ST elevation myocardial infarction. * Recommendation will be to continue with aspirin * Continue with the beta-devin * Discontinue tobacco use * Continue clopidogrel * Cardiac catheterization demonstrated the following: Normal left main coronary artery. Left anterior descending artery with mild disease. Left circumflex artery with mild disease. Dominant large right coronary artery previously stented with an area just distal to the stent with a 95% stenosis. Distal right coronary artery has a residual 40% stenosis. Preserved left ventricular ejection fraction. Based on the above radiographic findings the patient underwent stenting to the distal right coronary artery which he tolerated well. This morning she has no complaints and her EKG appears to be better. * She will be discharged with aspirin, clopidogrel, and statin. 2. Hypertension * Blood pressure is under good control will continue current medical therapy. Her beta-devin can be reinstituted as an outpatient. * 3. Factor modification * Will seriously consider risk factor modification with reduction in tobacco use, a more appropriate diet as well as adherence to medications and follow-up * * Thank you for allowing me to participate in the care of your patient. Please don't hesitate to call if any issues arise
[2018-08-11] MEDS: Aspirin 81 MG TAB.CHEW PO (08:15)
[2018-08-11] MEDS: Multivitamins,Ther W-Minerals Tablet 1 TABLET PO (08:15)
[2018-08-11] MEDS: Folic Acid 1 MG Tablet PO (08:15)
[2018-08-11] MEDS: Famotidine 20 MG Tablet PO (08:16)
[2018-08-11] MEDS: DULoxetine Hcl 60 MG Capsule PO (08:16)
[2018-08-11] MEDS: Clopidogrel Bisulfate 75 MG Tablet PO (08:16)
[2018-08-11] MEDS: Thiamine Hydrochloride 100 MG Tablet PO (08:16)
--- NOTE | 2018-08-11 09:40 | PCM.DC ---
- Discharge Diagnoses Current Active Problems: Current Active and Chronic Problems (Last Reviewed 01/28/18 @ 14:03 by Adriana Bhat) (1) Chest Pain w/ Acute NSTEMI w/ Successful DAYANARA mid RCA performed (2) CAD s/p prior to current admission PCI DAYANARA RCA 06/05/2016 (3) EtOH Abuse (4) Tobacco/Nicotine Abuse (5) Chronic pain syndrome, RDS (6) Hypertension (7) Hyperlipidemia You will use the following diet at home:: Cardiac Your food should be the consistency of: Regular Your liquids should be the consistency of: Regular/Thin Discharge Activity: May Not Drive - Until restrictions lifted per Cardiology. May resume sexual activity in: 10-14 days Weight Bearing Status: Weight bearing as tolerated Call your doctor if your incision/area has: Continuous Slow Oozing, Sudden Increased Bleeding, Increased Pain/ Swelling, Increased Redness, Foul Smelling Discharge, Swelling at the incision site Call your doctor if you observe: Fever of 101 or Higher, Inability to urinate, Inability to have a bowel movement, Shortness of breath, Dizziness, Fainting spells, Chest pain Instructions: Symptoms of a Heart Attack, First Aid: Heart Attacks, Recognizing a Heart Attack or Angina, Understanding Coronary Artery Disease (CAD), Discharge Instructions for Heart Attack, Tips for Quitting Smoking (Cardiovascular), Why Do You Smoke?, Planning to Quit Smoking, Alcohol Addiction, Addiction: Ask Yourself These Questions, Addiction: Your Treatment Options Additional Instructions: MEDICATION CLARIFICATION: You have been given a script for coreg; however, Dr. Bal notes resumption on an outpatient basis. May hold this regimen start until evaluation per him at follow-up. He may change this to an alternate therapy. CARDIOLOGY PCI CATH INSTRUCTIONS. Lifting: Must be less than 5 lbs for 5 days, No restrictions after 14 days. Shower: Yes. Climb stairs: Yes. Bathing in tub or submerged water: No, until cleared per Cardiology at follow-up (call office if any concerns [phone] and may leave voicemail if after hours). Walkin minutes 3 times daily, increase as tolerated. Driving: Resume in 7 days. Sexual activity: Resume in 14 days. Regular activity: Resume 14 days Allergies/Adverse Reactions: Allergies aspirin Adverse Reaction (Verified 08/09/18 12:03) Other hallucinations, upset stomachs Uqmdtfb-Pof-Ttp Reductase Inhibitor Adverse Reaction (Verified 08/09/18 12:03) myalgias ticagrelor [From Brilinta] Adverse Reaction (Verified 08/09/18 12:03) SOB Medications to take at Discharge Cholecalciferol (Vitamin D3) [Vitamin D3] 1,000 unit PO DAILY 06/05/16 Estradiol [Estrace Vaginal Cream] 1 gm VAGINAL Q7D 06/05/16 [place]-3 Fatty Acids/Fish Oil [[place] 3 Fish Oil Softgel] 1 ea PO DAILY 06/05/16 Aspirin E.C. [Ecotrin] 81 mg PO DAILY@0800 08/09/18 Clopidogrel Bisulfate [Clopidogrel] 75 mg PO DAILY 08/09/18 Ezetimibe 10 mg PO DAILY 08/09/18 Oxycodone HCl/Acetaminophen [Percocet 5-325 mg Tablet] 1 each PO Q8H PRN PRN 08/09/18 ascorbic acid (vitamin C) 500 mg capsule 500 mg PO DAILY cap 08/09/18 duloxetine 60 mg capsule,delayed release 60 mg PO DAILY 08/09/18 methadone 5 mg tablet 2.5 mg PO DAILY tab 08/09/18 vitamin B complex tablet 1 tab PO DAILY 08/09/18 Carvedilol [Coreg] 3.125 mg PO DAILY #30 tablet 08/11/18 Famotidine [Pepcid] 20 mg PO BID #60 tablet 08/11/18 Nitroglycerin [Nitrostat] 0.4 mg SUBLINGUAL Q5M PRN #10 tablet 08/11/18 Vit,Abdi 74/Iron/Folic [ Low Iron Tablet] 1 each PO DAILY #30 tablet 08/11/18 The following prescriptions were given: Carvedilol [Coreg] 3.125 mg PO DAILY #30 tablet Nitroglycerin [Nitrostat] 0.4 mg SUBLINGUAL Q5M PRN #10 tablet PRN Reason: Chest Pain Vit,Abdi 74/Iron/Folic [ Low Iron Tablet] 1 each PO DAILY #30 tablet Famotidine [Pepcid] 20 mg PO BID #60 tablet Primary Care Physician: Rosalind Jama MD [Primary Care Provider] - Please follow up with your Primary Care Physician in: Follow-up within 3-5 days to review admission. Test Results: Test results from this visit will be discussed in further detail at your follow-up appointment, if applicable. Please Follow Up With: Dangelo Bal MD When: Office will call to arrange appt. Call if do not hear from them in 1-2 days Proposed Discharge Date: 08/11/18
--- NOTE | 2018-08-11 09:45 | DCINST_ITS ---
- Discharge Diagnoses Current Active Problems: Current Active and Chronic Problems (Last Reviewed 01/28/18 @ 14:03 by Adriana Bhat) (1) Chest Pain w/ Acute NSTEMI w/ Successful DAYANARA mid RCA performed (2) CAD s/p prior to current admission PCI DAYANARA RCA 06/05/2016 (3) EtOH Abuse (4) Tobacco/Nicotine Abuse (5) Chronic pain syndrome, RDS (6) Hypertension (7) Hyperlipidemia You will use the following diet at home:: Cardiac Your food should be the consistency of: Regular Your liquids should be the consistency of: Regular/Thin Discharge Activity: May Not Drive - Until restrictions lifted per Cardiology. May resume sexual activity in: 10-14 days Weight Bearing Status: Weight bearing as tolerated Call your doctor if your incision/area has: Continuous Slow Oozing, Sudden Incr eased Bleeding, Increased Pain/ Swelling, Increased Redness, Foul Smelling Discharge, Swelling at the incision site Call your doctor if you observe: Fever of 101 or Higher, Inability to urinate, Inability to have a bowel movement, Shortness of breath, Dizziness, Fainting spells, Chest pain Instructions: Symptoms of a Heart Attack, First Aid: Heart Attacks, Recognizing a Heart Attack or Angina, Understanding Coronary Artery Disease (CAD), Discharge Instructions for Heart Attack, Tips for Quitting Smoking (Cardiovascular), Why Do You Smoke?, Planning to Quit Smoking, Alcohol Addiction, Addiction: Ask Yourself These Questions, Addiction: Your Treatment Options Additional Instructions: MEDICATION CLARIFICATION: You have been given a script for coreg; however, Dr. Bal notes resumption on an outpatient basis. May hold this regimen start until evaluation per him at follow-up. He may change this to an alternate therapy. CARDIOLOGY PCI CATH INSTRUCTIONS. Lifting: Must be less than 5 lbs for 5 days, No restrictions after 14 days. Shower: Yes. Climb stairs: Yes. Bathing in tub or submerged water: No, until cleared per Cardiology at follow-up (call office if any concerns [phone] and may leave voicemail if after hours). Walkin minutes 3 times daily, increase as tolerated. Driving: Resume in 7 days. Sexual activity: Resume in 14 days. Regular activity: Resume 14 days Allergies/Adverse Reactions: Allergies aspirin Adverse Reaction (Verified 08/09/18 12:03) Other hallucinations, upset stomachs Cfijuxy-Fzs-Gyi Reductase Inhibitor Adverse Reaction (Verified 08/09/18 12:03) myalgias ticagrelor [From Brilinta] Adverse Reaction (Verified 08/09/18 12:03) SOB Medications to take at Discharge Cholecalciferol (Vitamin D3) [Vitamin D3] 1,000 unit PO DAILY 06/05/16 Estradiol [Estrace Vaginal Cream] 1 gm VAGINAL Q7D 06/05/16 [place]-3 Fatty Acids/Fish Oil [[place] 3 Fish Oil Softgel] 1 ea PO DAILY 06/05/16 Aspirin E.C. [Ecotrin] 81 mg PO DAILY@0800 08/09/18 Clopidogrel Bisulfate [Clopidogrel] 75 mg PO DAILY 08/09/18 Ezetimibe 10 mg PO DAILY 08/09/18 Oxycodone HCl/Acetaminophen [Percocet 5-325 mg Tablet] 1 each PO Q8H PRN PRN 08/09/18 ascorbic acid (vitamin C) 500 mg capsule 500 mg PO DAILY cap 08/09/18 duloxetine 60 mg capsule,delayed release 60 mg PO DAILY 08/09/18 methadone 5 mg tablet 2.5 mg PO DAILY tab 08/09/18 vitamin B complex tablet 1 tab PO DAILY 08/09/18 Carvedilol [Coreg] 3.125 mg PO DAILY #30 tablet 08/11/18 Famotidine [Pepcid] 20 mg PO BID #60 tablet 08/11/18 Nitroglycerin [Nitrostat] 0.4 mg SUBLINGUAL Q5M PRN #10 tablet 08/11/18 Vit,Abdi 74/Iron/Folic [ Low Iron Tablet] 1 each PO DAILY #30 tablet 08/11/18 The following prescriptions were given: Carvedilol [Coreg] 3.125 mg PO DAILY #30 tablet Nitroglycerin [Nitrostat] 0.4 mg SUBLINGUAL Q5M PRN #10 tablet PRN Reason: Chest Pain Vit,Abdi 74/Iron/Folic [ Low Iron Tablet] 1 each PO DAILY #30 tablet Famotidine [Pepcid] 20 mg PO BID #60 tablet Primary Care Physician: Rosalind Jama MD [Primary Care Provider] - Please follow up with your Primary Care Physician in: Follow-up within 3-5 days to review admission. Test Results: Test results from this visit will be discussed in further detail at your follow- up appointment, if applicable. Please Follow Up With: Dangelo Bal MD When: Office will call to arrange appt. Call if do not hear from them in 1-2 days Proposed Discharge Date: 08/11/18
--- NOTE | 2018-08-11 09:46 | PCM.DC.SUM ---
Discharge Date and Diagnosis - Problem List Patient Problems: Active and Suspected Problems (Last Reviewed 01/28/18 @ 14:03 by Adriana Bhat) Non-STEMI (non-ST elevated myocardial infarction) (Acute) Date of Admission: 08/09/18 Date of Discharge: 08/11/18 - Primary Discharge Diagnosis Active and Suspected Problems (Last Reviewed 01/28/18 @ 14:03 by Adriana Bhat) (1) Chest Pain w/ Acute NSTEMI w/ Successful DAYANARA mid RCA performed (2) CAD s/p prior to current admission PCI DAYANARA RCA 06/05/2016 (3) EtOH Abuse (4) Tobacco/Nicotine Abuse (5) Chronic pain syndrome, RDS (6) Hypertension (7) Hyperlipidemia - Secondary Discharge Diagnosis Chronic Problems (Last Reviewed 01/28/18 @ 14:03 by Adriana Bhat) ETOH abuse (Chronic) Atherosclerosis of coronary artery of [place] heart without angina pectoris (Chronic) History of coronary artery stent placement (Chronic 08/10/18) PCI-DAYANARA-RCA 06/05/2016; PCI-DAYANARA to RCA distal to previously placed stent 08/10/2018 Nicotine dependence (Chronic) Hyperlipidemia (Chronic) Hypertension (Chronic) Hospital Course and Treatment Operations: None Procedures: 2-D Echocardiogram, Cardiac catheterization, EKG Summary of Care Provided: The patient is a 57 y/o F w/ PMHx: Tobacco use, EtOH Abuse, CAD s/p PCI x 1, HTN, HLD, Chronic Pain Syndrome s/p prior spinal and peripheral nerve stimulator s/p removal with wires still in place, not following with Chronic Pain Management but using old rx Methadone at reduced dose who presented to the [facility] ED on 08/09/[address] Carvalho office per LAB SCIENTIST recommendation with EKG changes and intermittent chest pain x 1 month. Work-up in the ED included T 97, heart rate 71, BP 120/86, respiratory rate 16, 96% on 2 L nasal cannula, unremarkable CBC, unremarkable coags, unremarkable BMP, opponent 2.470, EKG with ST depression T wave inversion in leads II, 3, aVF and some mild nonspecific ST depression in V5 and V6 different from prior, chest x-ray with no acute cardiopulmonary findings. Admitted to PCU initially, maintain on a monitored bed, serial cardiac enzymes w/ 2.470->3.20->2.770, magnesium obtained, lovenox therapeutic regimen initially administered. 08/10/[address] Bal w/ noted normal left main coronary artery, LAD with mild disease, left circumflex with mild disease, dominant large RCA previously stented with an area distal to the stent with a 95% stenosis as well as a distal RCA residual 40% stenosis, preserved LVEF. Successful DAYANARA mid RCA performed. Continued medical management w/ asa, plavix, low-dose beta-alyse administered with upon discharge per cardiology note prescription given however hold until evaluation as patient with low normal BP baseline with possible regimen alteration at follow-up. She with statin allergy, restarted on home fish oil as well as a ezetimibe regimen. FLP w/ TG 205, TChol 203, LDL 126, VLDL 41, HDL 36. ASA, NG, morphine. Patient evaluated per cardiology this morning and cleared for discharge to home. Advised patient strongly on nicotine cessation as well as appropriate alcohol intake. Patient discharged home in stable condition with recommended to follow-up with primary care physician within 3-5 days as well as planned cardiology follow-up per their discretion with office to call patient to arrange. Patient Problems: Active and Suspected Problems (Last Reviewed 01/28/18 @ 14:03 by Adriana Bhat) Non-STEMI (non-ST elevated myocardial infarction) (Acute) - Physical Exam Vital Signs Temp Pulse Resp BP Pulse Ox 98.6 F 81 16 103/65 96 08/11/18 04:00 08/11/18 09:00 08/11/18 09:00 08/11/18 09:00 08/11/18 09:00 Oxygen Flow Rate (L/min) 2 Oxygen Delivery Method Room Air Weight: 159 lb 13.362 oz Body Mass Index (BMI) 24.9 Intake and Output for Last 24 Hours 08/09/18 08/10/18 08/11/18 23:59 23:59 23:59 Intake Total 1588 / 1588 3175 / 3175 864 / 864 Output Total 0 / 0 Balance 1588 / 1588 3175 / 3175 864 / 864 Laboratory Tests Past 24 Hrs 08/11/18 08/11/18 04:20 04:20 WBC 6.0 RBC 4.00 L Hgb 11.4 L Hct 36.4 L MCV 91.0 MCH 28.5 MCHC 31.3 L RDW 12.8 RDW Differential 41.8 Plt Count 178 MPV 10.4 Sodium 144 Potassium 4.2 Chloride 113 H Carbon Dioxide 27.0 Anion Gap 4 L BUN 16 Creatinine 0.82 Estim Creat Clear Calc 71.84 Est GFR (MDRD) Af Amer 92 Est GFR (MDRD) Non-Af 76 BUN/Creatinine Ratio 19.5 Glucose 108 H Calcium 8.1 L Discharge Activity: May Not Drive - Until restrictions lifted per Cardiology. May resume sexual activity in: 10-14 days Weight Bearing Status: Weight bearing as tolerated Call your doctor if your incision/area has: Continuous Slow Oozing, Sudden Increased Bleeding, Increased Pain/ Swelling, Increased Redness, Foul Smelling Discharge, Swelling at the incision site Call your doctor if you observe: Fever of 101 or Higher, Inability to urinate, Inability to have a bowel movement, Shortness of breath, Dizziness, Fainting spells, Chest pain Home Medications: Medications to take at Discharge Cholecalciferol (Vitamin D3) [Vitamin D3] 1,000 unit PO DAILY 06/05/16 Estradiol [Estrace Vaginal Cream] 1 gm VAGINAL Q7D 06/05/16 [place]-3 Fatty Acids/Fish Oil [[place] 3 Fish Oil Softgel] 1 ea PO DAILY 06/05/16 Aspirin E.C. [Ecotrin] 81 mg PO DAILY@0800 08/09/18 Clopidogrel Bisulfate [Clopidogrel] 75 mg PO DAILY 08/09/18 Ezetimibe 10 mg PO DAILY 08/09/18 Oxycodone HCl/Acetaminophen [Percocet 5-325 mg Tablet] 1 each PO Q8H PRN PRN 08/09/18 ascorbic acid (vitamin C) 500 mg capsule 500 mg PO DAILY cap 08/09/18 duloxetine 60 mg capsule,delayed release 60 mg PO DAILY 08/09/18 methadone 5 mg tablet 2.5 mg PO DAILY tab 08/09/18 vitamin B complex tablet 1 tab PO DAILY 08/09/18 Carvedilol [Coreg] 3.125 mg PO DAILY #30 tablet 08/11/18 Famotidine [Pepcid] 20 mg PO BID #60 tablet 08/11/18 Nitroglycerin [Nitrostat] 0.4 mg SUBLINGUAL Q5M PRN #10 tablet 08/11/18 Vit,Abdi 74/Iron/Folic [ Low Iron Tablet] 1 each PO DAILY #30 tablet 08/11/18 Following Prescrptions Were Given to Patient: Carvedilol [Coreg] 3.125 mg PO DAILY #30 tablet Nitroglycerin [Nitrostat] 0.4 mg SUBLINGUAL Q5M PRN #10 tablet PRN Reason: Chest Pain Vit,Abdi 74/Iron/Folic [ Low Iron Tablet] 1 each PO DAILY #30 tablet Famotidine [Pepcid] 20 mg PO BID #60 tablet Primary Care Physician: Rosalind Jama MD [Primary Care Provider] - Please follow up with your Primary Care Physician in: Follow-up within 3-5 days to review admission. Please Follow Up With: Dangelo Bal MD When: Office will call to arrange appt. Call if do not hear from them in 1-2 days Patient Instructions: Symptoms of a Heart Attack, Tips for Quitting Smoking (Cardiovascular), First Aid: Heart Attacks, Recognizing a Heart Attack or Angina, Alcohol Addiction, Addiction: Ask Yourself These Questions, Addiction: Your Treatment Options, Why Do You Smoke?, Planning to Quit Smoking, Understanding Coronary Artery Disease (CAD), Discharge Instructions for Heart Attack Disposition: Home Minutes spent on discharge:: 35 Patient Condition:: Fair Medical Necessity - Tobacco Use Smoking Status: Current every day smoker - Currently transition from cigarette tobacco usage approximately 6 months prior to vaping, unclear amount. Tobacco Use: Vapor Meaningful Use Info Meaningful Use Diagnoses (Choose all that apply): AMI - AMI Aspirin given w/in 24hrs of arrival?: Yes ASA at discharge?: Yes Statins at discharge?: No Reason statins not ordered:: Allergy Jai/ARB at discharge?: No Reason Jai/ARB not ordered:: Hypotension Beta Alyse at discharge?: Yes Done w/ Acute [place] measure.: Yes Code Visit Inpatient E&M: 88665 Disch Hosp
--- NOTE | 2018-08-11 09:50 | DS.PCM_ITS ---
Discharge Date and Diagnosis - Problem List Patient Problems: Active and Suspected Problems (Last Reviewed 01/28/18 @ 14:03 by Adriana Bhat) Non-STEMI (non-ST elevated myocardial infarction) (Acute) Date of Admission: 08/09/18 Date of Discharge: 08/11/18 - Primary Discharge Diagnosis Active and Suspected Problems (Last Reviewed 01/28/18 @ 14:03 by Adriana Bhat) (1) Chest Pain w/ Acute NSTEMI w/ Successful DAYANARA mid RCA performed (2) CAD s/p prior to current admission PCI DAYANARA RCA 06/05/2016 (3) EtOH Abuse (4) Tobacco/Nicotine Abuse (5) Chronic pain syndrome, RDS (6) Hypertension (7) Hyperlipidemia - Secondary Discharge Diagnosis Chronic Problems (Last Reviewed 01/28/18 @ 14:03 by Adriana Bhat) ETOH abuse (Chronic) Atherosclerosis of coronary artery of [place] heart without angina pectoris (Chronic) History of coronary artery stent placement (Chronic 08/10/18) PCI-DAYANARA-RCA 06/05/2016; PCI-DAYANARA to RCA distal to previously placed stent 08/10/2018 Nicotine dependence (Chronic) Hyperlipidemia (Chronic) Hypertension (Chronic) Hospital Course and Treatment Operations: None Procedures: 2-D Echocardiogram, Cardiac catheterization, EKG Summary of Care Provided: The patient is a 57 y/o F w/ PMHx: Tobacco use, EtOH Abuse, CAD s/p PCI x 1, HTN, HLD, Chronic Pain Syndrome s/p prior spinal and peripheral nerve stimulator s/p removal with wires still in place, not following with Chronic Pain Management but using old rx Methadone at reduced dose who presented to the [facility] ED on 08/09/[address] Carvalho office per 3RD MATE recommendation with EKG changes and intermittent chest pain x 1 month. Work-up in the ED included T 97, heart rate 71, BP 120/86, respiratory rate 16, 96% on 2 L nasal cannula, unremarkable CBC, unremarkable coags, unremarkable BMP, opponent 2.470, EKG with ST depression T wave inversion in leads II, 3, aVF and some mild nonspecific ST depression in V5 and V6 different from prior, chest x-ray with no acute cardiopulmonary findings. Admitted to PCU initially, maintain on a monitored bed, serial cardiac enzymes w/ 2.470->3.20->2.770, magnesium obtained, lovenox therapeutic regimen initially administered. 08/10/[address] Bal w/ noted normal left main coronary artery, LAD with mild disease, left circumflex with mild disease, dominant large RCA previously stented with an area distal to the stent with a 95% stenosis as well as a distal RCA residual 40% stenosis, preserved LVEF. Successful DAYANARA mid RCA performed. Continued medical management w/ asa, plavix, low-dose beta-alyse administered with upon discharge per cardiology note prescription given however hold until evaluation as patient with low normal BP baseline with possible regimen alteration at follow-up. She with statin allergy, restarted on home fish oil as well as a ezetimibe regimen. FLP w/ TG 205, TChol 203, LDL 126, VLDL 41, HDL 36. ASA, NG, morphine. Patient evaluated per cardiology this morning and cleared for discharge to home. Advised patient strongly on nicotine cessation as well as appropriate alcohol intake. Patient discharged home in stable condition with recommended to follow-up with primary care physician within 3-5 days as well as planned cardiology follow-up per their discretion with office to call patient to arrange. Patient Problems: Active and Suspected Problems (Last Reviewed 01/28/18 @ 14:03 by Adriana Bhat) Non-STEMI (non-ST elevated myocardial infarction) (Acute) - Physical Exam Vital Signs Temp Pulse Resp BP Pulse Ox 98.6 F 81 16 103/65 96 08/11/18 04:00 08/11/18 09:00 08/11/18 09:00 08/11/18 09:00 08/11/18 09:00 Oxygen Flow Rate (L/min) 2 Oxygen Delivery Method Room Air Weight: 159 lb 13.362 oz Body Mass Index (BMI) 24.9 Intake and Output for Last 24 Hours 08/09/18 08/10/18 08/11/18 23:59 23:59 23:59 Intake Total 1588 / 1588 3175 / 3175 864 / 864 Output Total 0 / 0 Balance 1588 / 1588 3175 / 3175 864 / 864 Laboratory Tests Past 24 Hrs 08/11/18 08/11/18 04:20 04:20 WBC 6.0 RBC 4.00 L Hgb 11.4 L Hct 36.4 L MCV 91.0 MCH 28.5 MCHC 31.3 L RDW 12.8 RDW Differential 41.8 Plt Count 178 MPV 10.4 Sodium 144 Potassium 4.2 Chloride 113 H Carbon Dioxide 27.0 Anion Gap 4 L BUN 16 Creatinine 0.82 Estim Creat Clear Calc 71.84 Est GFR (MDRD) Af Amer 92 Est GFR (MDRD) Non-Af 76 BUN/Creatinine Ratio 19.5 Glucose 108 H Calcium 8.1 L Discharge Activity: May Not Drive - Until restrictions lifted per Cardiology. May resume sexual activity in: 10-14 days Weight Bearing Status: Weight bearing as tolerated Call your doctor if your incision/area has: Continuous Slow Oozing, Sudden In creased Bleeding, Increased Pain/ Swelling, Increased Redness, Foul Smelling Discharge, Swelling at the incision site Call your doctor if you observe: Fever of 101 or Higher, Inability to urinate, Inability to have a bowel movement, Shortness of breath, Dizziness, Fainting spells, Chest pain Home Medications: Medications to take at Discharge Cholecalciferol (Vitamin D3) [Vitamin D3] 1,000 unit PO DAILY 06/05/16 Estradiol [Estrace Vaginal Cream] 1 gm VAGINAL Q7D 06/05/16 [place]-3 Fatty Acids/Fish Oil [[place] 3 Fish Oil Softgel] 1 ea PO DAILY 06/05/16 Aspirin E.C. [Ecotrin] 81 mg PO DAILY@0800 08/09/18 Clopidogrel Bisulfate [Clopidogrel] 75 mg PO DAILY 08/09/18 Ezetimibe 10 mg PO DAILY 08/09/18 Oxycodone HCl/Acetaminophen [Percocet 5-325 mg Tablet] 1 each PO Q8H PRN PRN 08/09/18 ascorbic acid (vitamin C) 500 mg capsule 500 mg PO DAILY cap 08/09/18 duloxetine 60 mg capsule,delayed release 60 mg PO DAILY 08/09/18 methadone 5 mg tablet 2.5 mg PO DAILY tab 08/09/18 vitamin B complex tablet 1 tab PO DAILY 08/09/18 Carvedilol [Coreg] 3.125 mg PO DAILY #30 tablet 08/11/18 Famotidine [Pepcid] 20 mg PO BID #60 tablet 08/11/18 Nitroglycerin [Nitrostat] 0.4 mg SUBLINGUAL Q5M PRN #10 tablet 08/11/18 Vit,Abdi 74/Iron/Folic [ Low Iron Tablet] 1 each PO DAILY #30 tablet 08/11/18 Following Prescrptions Were Given to Patient: Carvedilol [Coreg] 3.125 mg PO DAILY #30 tablet Nitroglycerin [Nitrostat] 0.4 mg SUBLINGUAL Q5M PRN #10 tablet PRN Reason: Chest Pain Vit,Abdi 74/Iron/Folic [ Low Iron Tablet] 1 each PO DAILY #30 tablet Famotidine [Pepcid] 20 mg PO BID #60 tablet Primary Care Physician: Rosalind Jama MD [Primary Care Provider] - Please follow up with your Primary Care Physician in: Follow-up within 3-5 days to review admission. Please Follow Up With: Dangelo Bal MD When: Office will call to arrange appt. Call if do not hear from them in 1-2 days Patient Instructions: Symptoms of a Heart Attack, Tips for Quitting Smoking (Ca rdiovascular), First Aid: Heart Attacks, Recognizing a Heart Attack or Angina, Alcohol Addiction, Addiction: Ask Yourself These Questions, Addiction: Your Treatment Options, Why Do You Smoke?, Planning to Quit Smoking, Understanding Coronary Artery Disease (CAD), Discharge Instructions for Heart Attack Disposition: Home Minutes spent on discharge:: 35 Patient Condition:: Fair Medical Necessity - Tobacco Use Smoking Status: Current every day smoker - Currently transition from cigarette tobacco usage approximately 6 months prior to vaping, unclear amount. Tobacco Use: Vapor Meaningful Use Info Meaningful Use Diagnoses (Choose all that apply): AMI - AMI Aspirin given w/in 24hrs of arrival?: Yes ASA at discharge?: Yes Statins at discharge?: No Reason statins not ordered:: Allergy Jai/ARB at discharge?: No Reason Jai/ARB not ordered:: Hypotension Beta Alyse at discharge?: Yes Done w/ Acute [place] measure.: Yes Code Visit Inpatient E&M: 02138 Disch Hosp
== END 2018-08-11 10:17 | disposition home or self-care (01) | DRG 247 ==
LOC: ED 13:02 → PCU 13:20 → ICU 08-10 08:42
PROVIDERS: Hospitalist; Internal Medicine Cardiovascular Disease; Admitting Provider Family Medicine; Emergency Provider Emergency Medicine; Family Provider Internal Medicine; PCP Internal Medicine; Visit Provider Family Medicine
DX: I21.4 Non-ST elevation (NSTEMI) myocardial infarction (principal); G90.50 Complex regional pain syndrome I, unspecified; I25.10 Atherosclerotic heart disease of native coronary artery without angina pectoris; E78.5 Hyperlipidemia, unspecified; G89.4 Chronic pain syndrome; F10.10 Alcohol abuse, uncomplicated; I10 Essential (primary) hypertension; Z95.5 Presence of coronary angioplasty implant and graft; Z72.0 Tobacco use
CPT/HCPCS: 36415; 71045; 80048; 80053; 80061; 80307; 80320; 81001; 83735; 84100; 84484; 85025; 85027; 85610; 85730; 92928; 93005; 93306; 93458; 99152; 99153; 99285; 99406; J7030; J7040; Q9957; A4216; C1769; C1874; C1887; C1894; C9600; G0480; J0583; Q9967

== ENCOUNTER → 2019-05-31 08:39 | Outpatient (CLI) | payer MEDICARE, SELFPAY ==
[2018-08-10 10:30] VITALS: BMI 24.9
[2019-04-07 09:21] VITALS: BMI 25.3
[2019-05-31 09:43] LABS: AST(SGOT) 24 U/L (15-37); Alanine Aminotransfer ALT/SGPT 34 U/L (13-56); Alkaline Phosphatase 57 U/L (45-117); Bilirubin, Direct 0.09 mg/dL (0.00-0.30); Cholesterol 242 mg/dL (200); Globulin 3.8 g/dL (2.2-4.2); High Density Lipoprotein 51 mg/dL; Protein, Total 7.8 g/dL (6.4-8.2); Triglycerides 187 mg/dL; Very Low Density Lipoprotein 37 mg/dL (5-40)
== END ==
PROVIDERS: Family Provider Internal Medicine; PCP Internal Medicine; Referring Provider Internal Medicine Cardiovascular Disease; Visit Provider Internal Medicine Cardiovascular Disease
DX: E78.00 Pure hypercholesterolemia, unspecified (principal)
CPT/HCPCS: 36415; 80061; 80076

== ENCOUNTER → 2021-09-14 | Outpatient (CLI) | payer MEDICARE, SELFPAY ==
[2018-08-10 10:30] VITALS: BMI 24.9
--- NOTE | 2021-09-14 13:09 | RAD_ITS ---
STUDY: X-RAY - RIGHT HAND REASON FOR EXAM: Female, 61 years old. PAIN AND SWELLING TECHNIQUE: 3 view(s) of the hand. COMPARISON: None. FINDINGS: Normal radiocarpal articulation. Normal distal radioulnar joint. Normal visualized carpal bones. Normal carpal articulations Normal carpometacarpal articulation of the thumb. Normal second through fifth carpometacarpal joints. Normal metacarpi. Normal metacarpophalangeal joint of the thumb. Normal interphalangeal joint of the thumb. Normal proximal and distal phalanges of the thumb. Normal metacarpophalangeal joints of the second through fifth fingers. Normal proximal and distal interphalangeal joints of the second through fifth fingers. Normal phalanges of the second through fifth fingers. The soft tissue structures are unremarkable. RAD/Hand Min 3 Views IMPRESSION: Normal x-ray examination of the hand. Electronically Signed: Lang Lazo MD at 14:14 EDT ,
== END | disposition home or self-care (01) ==
LOC: RAD 13:06
PROVIDERS: PCP Internal Medicine; Visit Provider Nurse Practitioner Family
DX: M79.671 Pain in right foot (principal)
CPT/HCPCS: 73130

== ENCOUNTER → 2022-01-02 | Outpatient (CLI) | payer MEDICARE, SELFPAY ==
[2018-08-10 10:30] VITALS: BMI 24.9
--- NOTE | 2022-01-02 19:18 | STRESSREP ---
Stress Test Report Exercise myocardial perfusion stress test. 61-year-old lady with a history of coronary artery disease status post previous right coronary artery stenting. Stress protocol: Resting EKG demonstrates normal sinus rhythm with a rate of 53 bpm normal intervals are noted. Resting blood pressure is 116/70 mmHg. The patient exercised according to the regular [place]obo protocol for a total duration of 6 minutes and 15 seconds. The maximum heart rate attained was 142 bpm which was 90% of max impacted heart rate the maximum workload was 7.7 metabolic equivalents. At rest there were no ST or T wave changes noted to suggest ischemia and at peak exercise upsloping ST changes were noted with did not meet the criteria for ischemia. No clinical angina was noted the test was terminated due to the target heart rate being achieved. The peak blood pressure was 160/72 mmHg. Myocardial perfusion protocol. 11.3 mCi of technetium 99m sestamibi was injected at rest. The patient exercised according to regular Lobo protocol for total duration of 6 minutes and 15 seconds. At peak exercise 33.1 mCi of technetium 99m sestamibi was injected stress images were obtained stress and rest images were reconstructed in comparing the short axis vertical long and horizontal long axis. Gated images were also obtained for Perfusion SPECT analysis: Review of the stress images demonstrate normal uptake of tracer noted in all areas of the myocardium. The resting images similar demonstrate normal uptake of tracer noted in all areas of the myocardium. No areas of reversibility are noted to suggest ischemia and no previous infarct is noted. Gated SPECT analysis: The gated ejection fraction is 66%. Conclusion: Exercise myocardial perfusion stress test with no evidence of ischemia at a moderate workload. Preserved ejection fraction.
== END | disposition home or self-care (01) ==
LOC: CVS 06:58
PROVIDERS: PCP Internal Medicine; Referring Provider Nurse Practitioner Family; Visit Provider Nurse Practitioner Family
DX: I25.10 Atherosclerotic heart disease of native coronary artery without angina pectoris (principal); R07.9 Chest pain, unspecified; Z95.5 Presence of coronary angioplasty implant and graft
CPT/HCPCS: 78452; 93017; A9500; A4216